=== PATIENT | female | born 1930 | race African-American/Black ===

== ENCOUNTER 2018-10-16 06:38 | Inpatient (IN) | payer MEDICARE, OTHER ==
[~2018-10-16] VITALS: Ht 177.8 cm; Wt 98.0 kg
[2018-10-16] MEDS ORDERED: SODIUM CHLORIDE 0.9% 250 ML IV ONE (06:53)
[2018-10-16] MEDS ORDERED: FENTANYL CITRATE/PF 50MCG/ML 2ML VIAL IV ONE ×2 (07:00→09:15)
[2018-10-16] MEDS ORDERED: ONDANSETRON HCL 4MG/2ML INJ IV ONE (07:00)
[2018-10-16 07:40] LABS: BASOPHILS % 0.6 % (0.0-2.0); EOSINOPHILS % 1.3 % (0.0-5.0); HEMATOCRIT. 29.2 % (36.0-48.0); HEMOGLOBIN. 9.5 g/dL (12.0-16.0); LYMPHOCYTES % 8.3 % (20.0-50.0); MEAN CORPUSCULAR HEMOGLOBIN 30.8 pg (28.0-32.0); MEAN CORPUSCULAR VOLUME 94.5 fL (81.0-99.0); MONOCYTES % 9.1 % (2.0-8.0); NEUTROPHILS % 80.7 % (40.0-76.0); PLATELET 166 x1000/uL (130-400); RED BLOOD CELL COUNT 3.09 mill/uL (4.2-5.4); RED CELL DISTRIBUTION WIDTH 17.1 % (11.6-14.6)
[2018-10-16 07:47] LABS: PARTIAL THROMBOPLASTIN TIME 25.3 sec (23.4-31.0); PROTHROMBIN TIME 9.9 sec (9.1-11.1)
[2018-10-16] MEDS ORDERED: ASPIRIN 81MG TABLET PO ONE (08:45)
[2018-10-16] MEDS ORDERED: DIPHENHYDRAMINE 50MG/ML VIAL IV PRN (09:00)
[2018-10-16] MEDS ORDERED: CLONIDINE 0.1MG TABLET PO PRN (09:00)
[2018-10-16] MEDS ORDERED: GUAIFENESIN 200MG/10ML SUGAR FREE UDC PO PRN (09:00)
[2018-10-16] MEDS ORDERED: LORAZEPAM 2MG/ML CPJ IV PRN (09:00)
[2018-10-16] MEDS ORDERED: IPRATROPIUM/ALBUTEROL 0.5-3(2.5)MG/3ML NEB INH PRN (09:00)
[2018-10-16] MEDS ORDERED: ACETAMINOPHEN 325MG TABLET PO PRN (09:00)
[2018-10-16] MEDS ORDERED: MAGNESIUM/ALUMINUM HYDROXIDE/SIMETHICONE 30ML UDC PO PRN (09:00)
[2018-10-16] MEDS ORDERED: ONDANSETRON HCL 4MG/2ML INJ IV PRN (09:00)
[2018-10-16] MEDS ORDERED: MORPHINE SULFATE 4 MG/ML CPJ (NOT FOR IM USE) IV PRN (09:00)
[2018-10-16] MEDS ORDERED: NA PHOS,M-B/NA PHOS,DI-BA ENEMA 118ML PR PRN (09:00)
[2018-10-16 10:50] VITALS: BP 147/66
[2018-10-16 10:59] LABS: CREATINE KINASE 131 IU/L (26-192)
[2018-10-16] MEDS: ASPIRIN 81MG EC TABLET PO SCH (11:45)
[2018-10-16 12:00] VITALS: BP 147/66
[2018-10-16] MEDS ORDERED: ENOXAPARIN 40MG/0.4ML SYR SUBCUT SCH (12:00)
[2018-10-16] MEDS ORDERED: LORA10TA7 PO (12:43)
[2018-10-16] MEDS ORDERED: LEVO112T7 PO (12:43)
[2018-10-16] MEDS ORDERED: METO25TA6 PO (12:43)
[2018-10-16] MEDS ORDERED: GABA-531 PO (12:43)
[2018-10-16] MEDS ORDERED: CHOL400C8 PO (12:43)
[2018-10-16] MEDS ORDERED: ATOR40TA70 PO (12:43)
[2018-10-16] MEDS ORDERED: LISI-604 PO (12:43)
[2018-10-16] MEDS ORDERED: FURO20TA4 PO (12:43)
[2018-10-16] MEDS ORDERED: BRIM5DRO6 RIGHTEYE (12:43)
[2018-10-16] MEDS ORDERED: DAPS25TA MT (12:43)
[2018-10-16] MEDS ORDERED: ASPI-1159 PO (12:43)
[2018-10-16] MEDS ORDERED: MOXI3DRO12 EACHEYE (12:43)
[2018-10-16] MEDS ORDERED: TICA90TA PO (12:44)
[2018-10-16] MEDS: SODIUM CHLORIDE 0.45% 1,000 ML IV SCH (13:23)
[2018-10-16] MEDS: DILTIAZEM HCL 30MG TABLET PO SCH ×2 (13:23→22:00)
[2018-10-16 16:00] VITALS: BP 111/69
[2018-10-16] MEDS ORDERED: HYDROCODONE/ACETAMINOPHEN 5/325MG TABLET PO PRN (16:15)
[2018-10-16] MEDS ORDERED: LORATADINE 10MG TABLET PO PRN (16:15)
[2018-10-16] MEDS: HYDROCODONE/ACETAMINOPHEN 5/325MG TABLET PO PRN ×2 (16:17→21:49)
[2018-10-16] MEDS: BRIMONIDINE 0.2% OPHTH DROPS 5ML RIGHTEYE SCH (18:41)
[2018-10-16] MEDS: CIPROFLOXACIN 0.3% OPHTH SOLN 2.5ML EACHEYE SCH (18:41)
[2018-10-16] MEDS: DAPSONE 100MG TABLET PO SCH (18:41)
[2018-10-16] MEDS: METOPROLOL TARTRATE 25MG TABLET PO SCH (21:00)
[2018-10-16] MEDS: GABAPENTIN 300MG CAPSULE PO SCH (21:47)
[2018-10-16] MEDS: ATORVASTATIN CALCIUM 40MG TABLET PO SCH (21:48)
[2018-10-17] VITALS: BP 103/43
[2018-10-17] MEDS: HYDROCODONE/ACETAMINOPHEN 5/325MG TABLET PO PRN (03:42)
[2018-10-17 04:00] VITALS: BP 114/50
[2018-10-17] MEDS: DILTIAZEM HCL 30MG TABLET PO SCH ×3 (05:51→21:13)
[2018-10-17] MEDS: LEVOTHYROXINE SODIUM 112MCG TABLET PO SCH (06:53)
[2018-10-17 07:02] LABS: BASOPHILS % 0.8 % (0.0-2.0); EOSINOPHILS % 2.2 % (0.0-5.0); HEMATOCRIT. 24.3 % (36.0-48.0); HEMOGLOBIN. 7.9 g/dL (12.0-16.0); LYMPHOCYTES % 9.4 % (20.0-50.0); MEAN CORPUSCULAR HEMOGLOBIN 31.1 pg (28.0-32.0); MEAN CORPUSCULAR VOLUME 95.7 fL (81.0-99.0); MEAN PLATELET VOLUME 10.2 fl (7.4-10.4); MONOCYTES % 10.9 % (2.0-8.0); NEUTROPHILS % 76.7 % (40.0-76.0); PLATELET 120 x1000/uL (130-400); RED BLOOD CELL COUNT 2.54 mill/uL (4.2-5.4); RED CELL DISTRIBUTION WIDTH 17.2 % (11.6-14.6)
[2018-10-17 07:03] LABS: CHLORIDE 109 mEq/L (98-107)
[2018-10-17 07:24] LABS: LDL CHOLESTEROL 58 mg/dL (5-100)
[2018-10-17 07:25] LABS: HDL CHOLESTEROL 41 mg/dL (40-59)
[2018-10-17 08:00] VITALS: BP 102/46
[2018-10-17] MEDS: CIPROFLOXACIN 0.3% OPHTH SOLN 2.5ML EACHEYE SCH ×3 (09:00→17:42)
[2018-10-17] MEDS: METOPROLOL TARTRATE 25MG TABLET PO SCH ×2 (09:00→21:00)
[2018-10-17] MEDS: BRIMONIDINE 0.2% OPHTH DROPS 5ML RIGHTEYE SCH ×2 (09:51→17:42)
[2018-10-17] MEDS: ASPIRIN 81MG EC TABLET PO SCH (09:51)
[2018-10-17] MEDS: CHOLECALCIFEROL (D3) 1000 UNIT TABLET PO SCH (09:52)
[2018-10-17] MEDS: FUROSEMIDE 20MG TABLET PO SCH (09:52)
[2018-10-17] MEDS: DAPSONE 100MG TABLET PO SCH ×2 (09:53→17:42)
[2018-10-17] MEDS: HYDROCODONE/ACETAMINOPHEN 10/325MG TABLET PO PRN ×2 (11:13→17:43)
[2018-10-17 11:35] VITALS: BP 103/52
[2018-10-17] MEDS: SODIUM CHLORIDE 0.45% 1,000 ML IV SCH ×2 (12:00→15:21)
[2018-10-17] MEDS ORDERED: ENOXAPARIN 100MG/ML SYR SUBCUT SCH (14:00)
[2018-10-17 15:32] VITALS: BP 90/51
[2018-10-17 20:00] VITALS: BP 90/35
[2018-10-17] MEDS: ATORVASTATIN CALCIUM 40MG TABLET PO SCH (21:12)
[2018-10-17] MEDS: GABAPENTIN 300MG CAPSULE PO SCH (21:12)
[2018-10-18 04:00] VITALS: BP 112/57
[2018-10-18] MEDS: LEVOTHYROXINE SODIUM 112MCG TABLET PO SCH (06:25)
[2018-10-18] MEDS: HYDROCODONE/ACETAMINOPHEN 10/325MG TABLET PO PRN ×2 (06:26→14:13)
[2018-10-18] MEDS: DILTIAZEM HCL 30MG TABLET PO SCH ×3 (06:27→22:00)
[2018-10-18] MEDS: ASPIRIN 81MG EC TABLET PO SCH (10:13)
[2018-10-18] MEDS: FUROSEMIDE 20MG TABLET PO SCH (10:13)
[2018-10-18] MEDS: DAPSONE 100MG TABLET PO SCH ×2 (10:13→18:24)
[2018-10-18] MEDS: METOPROLOL TARTRATE 25MG TABLET PO SCH (10:13)
[2018-10-18] MEDS: CHOLECALCIFEROL (D3) 1000 UNIT TABLET PO SCH (10:14)
[2018-10-18] MEDS: CIPROFLOXACIN 0.3% OPHTH SOLN 2.5ML EACHEYE SCH ×3 (10:14→18:24)
[2018-10-18] MEDS: BRIMONIDINE 0.2% OPHTH DROPS 5ML RIGHTEYE SCH ×2 (10:14→18:25)
[2018-10-18 12:13] VITALS: BP 88/42
[2018-10-18 16:15] VITALS: BP 80/40
[2018-10-18 17:00] VITALS: BP 88/46
[2018-10-18] MEDS: SODIUM CHLORIDE 0.45% 1,000 ML IV SCH (18:24)
[2018-10-18 20:00] VITALS: BP 98/25
[2018-10-18] MEDS: GABAPENTIN 300MG CAPSULE PO SCH (20:38)
[2018-10-18] MEDS: ATORVASTATIN CALCIUM 40MG TABLET PO SCH (20:38)
[2018-10-19] VITALS (7 sets, daily range): BP systolic 90–138; BP diastolic 38–66
[2018-10-19] MEDS: HYDROCODONE/ACETAMINOPHEN 10/325MG TABLET PO PRN ×4 (02:23→20:43)
[2018-10-19] MEDS: DILTIAZEM HCL 30MG TABLET PO SCH ×3 (06:00→22:00)
[2018-10-19] MEDS: LEVOTHYROXINE SODIUM 112MCG TABLET PO SCH (06:29)
[2018-10-19] MEDS: CHOLECALCIFEROL (D3) 1000 UNIT TABLET PO SCH (08:09)
[2018-10-19] MEDS: DAPSONE 100MG TABLET PO SCH ×2 (08:10→17:09)
[2018-10-19] MEDS: ASPIRIN 81MG EC TABLET PO SCH (08:13)
[2018-10-19] MEDS: FUROSEMIDE 20MG TABLET PO SCH (08:13)
[2018-10-19] MEDS: CIPROFLOXACIN 0.3% OPHTH SOLN 2.5ML EACHEYE SCH ×3 (08:16→17:03)
[2018-10-19] MEDS: BRIMONIDINE 0.2% OPHTH DROPS 5ML RIGHTEYE SCH ×2 (08:16→17:09)
[2018-10-19 09:59] LABS: HEMATOCRIT. 24.2 % (36.0-48.0); HEMOGLOBIN. 7.7 g/dL (12.0-16.0); MEAN CORPUSCULAR HEMOGLOBIN 30.6 pg (28.0-32.0); MEAN CORPUSCULAR VOLUME 95.9 fL (81.0-99.0); MEAN PLATELET VOLUME 10.2 fl (7.4-10.4); PLATELET 119 x1000/uL (130-400); RED BLOOD CELL COUNT 2.52 mill/uL (4.2-5.4); RED CELL DISTRIBUTION WIDTH 17.5 % (11.6-14.6)
[2018-10-19 15:35] LABS: PLATELET ESTIMATE DECREASED
[2018-10-19 16:04] LABS: CREATINE KINASE 974 IU/L (26-192)
[2018-10-19] MEDS: SODIUM CHLORIDE 0.45% 1,000 ML IV SCH (19:02)
[2018-10-19 19:32] LABS: CLARITY URINE TURBID (CLEAR); COLOR URINE DARK YELLOW (YELLOW); KETONES URINE NEGATIVE (NEGATIVE); LEUKOCYTE ESTERASE URINE 3+ (NEGATIVE); NITRITE URINE POSITIVE (NEGATIVE); OCCULT BLOOD URINE 3+ (NEGATIVE); PROTEIN URINE NEGATIVE (NEGATIVE)
[2018-10-19] MEDS: ATORVASTATIN CALCIUM 40MG TABLET PO SCH (20:43)
[2018-10-19] MEDS: GABAPENTIN 300MG CAPSULE PO SCH (20:44)
[2018-10-20] VITALS: BP 102/50
[2018-10-20 04:00] VITALS: BP 110/51
[2018-10-20] MEDS: HYDROCODONE/ACETAMINOPHEN 10/325MG TABLET PO PRN ×3 (05:10→17:56)
[2018-10-20] MEDS: DILTIAZEM HCL 30MG TABLET PO SCH ×3 (06:00→21:01)
[2018-10-20] MEDS: LEVOTHYROXINE SODIUM 112MCG TABLET PO SCH (06:18)
[2018-10-20] MEDS ORDERED: HYDROMORPHONE HCL/PF 2MG/ML CPJ IV SCH (06:45)
[2018-10-20 08:01] LABS: HEMATOCRIT. 22.6 % (36.0-48.0); HEMOGLOBIN. 7.4 g/dL (12.0-16.0); MEAN CORPUSCULAR HEMOGLOBIN 30.5 pg (28.0-32.0); MEAN CORPUSCULAR VOLUME 93.4 fL (81.0-99.0); MEAN PLATELET VOLUME 10.4 fl (7.4-10.4); PLATELET 137 x1000/uL (130-400); RED BLOOD CELL COUNT 2.42 mill/uL (4.2-5.4); RED CELL DISTRIBUTION WIDTH 17.2 % (11.6-14.6)
[2018-10-20] MEDS: DAPSONE 100MG TABLET PO SCH ×2 (08:51→17:55)
[2018-10-20] MEDS: CHOLECALCIFEROL (D3) 1000 UNIT TABLET PO SCH (08:51)
[2018-10-20] MEDS: CIPROFLOXACIN 0.3% OPHTH SOLN 2.5ML EACHEYE SCH ×3 (08:51→17:55)
[2018-10-20] MEDS: SODIUM CHLORIDE 0.45% 1,000 ML IV SCH ×2 (08:51→21:42)
[2018-10-20] MEDS: BRIMONIDINE 0.2% OPHTH DROPS 5ML RIGHTEYE SCH ×2 (08:52→17:55)
[2018-10-20 12:00] VITALS: BP 129/60
[2018-10-20 13:24] LABS: CREATINE KINASE 1296 IU/L (26-192)
[2018-10-20 15:50] LABS: PLATELET ESTIMATE NORMAL
[2018-10-20 16:00] VITALS: BP 131/50
[2018-10-20 20:00] VITALS: BP 135/47
[2018-10-20] MEDS: ATORVASTATIN CALCIUM 40MG TABLET PO SCH (20:56)
[2018-10-20] MEDS: GABAPENTIN 300MG CAPSULE PO SCH (20:57)
[2018-10-20] MEDS ORDERED: HYDROMORPHONE HCL/PF 2MG/ML CPJ IV PRN (22:00)
[2018-10-20] MEDS: HYDROMORPHONE HCL/PF 2MG/ML CPJ IV PRN (23:20)
[2018-10-21] VITALS: BP 133/48
[2018-10-21 04:00] VITALS: BP_SYST 135; BP_DIAS 48; BP_DIAS 51
[2018-10-21] MEDS: HYDROCODONE/ACETAMINOPHEN 10/325MG TABLET PO PRN (04:17)
[2018-10-21] MEDS: DILTIAZEM HCL 30MG TABLET PO SCH ×3 (06:28→21:00)
[2018-10-21] MEDS: LEVOTHYROXINE SODIUM 112MCG TABLET PO SCH (06:28)
[2018-10-21 07:02] LABS: HEMATOCRIT. 23.8 % (36.0-48.0); HEMOGLOBIN. 7.6 g/dL (12.0-16.0); MEAN CORPUSCULAR HEMOGLOBIN 29.9 pg (28.0-32.0); MEAN CORPUSCULAR VOLUME 93.2 fL (81.0-99.0); MEAN PLATELET VOLUME 9.6 fl (7.4-10.4); PLATELET 165 x1000/uL (130-400); RED BLOOD CELL COUNT 2.55 mill/uL (4.2-5.4); RED CELL DISTRIBUTION WIDTH 16.7 % (11.6-14.6)
[2018-10-21 08:00] VITALS: BP 113/44
[2018-10-21] MEDS: CIPROFLOXACIN 0.3% OPHTH SOLN 2.5ML EACHEYE SCH ×3 (08:17→17:39)
[2018-10-21] MEDS: BRIMONIDINE 0.2% OPHTH DROPS 5ML RIGHTEYE SCH ×2 (08:18→17:40)
[2018-10-21] MEDS: CHOLECALCIFEROL (D3) 1000 UNIT TABLET PO SCH (08:18)
[2018-10-21] MEDS: DAPSONE 100MG TABLET PO SCH ×2 (08:19→17:40)
[2018-10-21 09:27] LABS: PLATELET ESTIMATE NORMAL
[2018-10-21 12:00] VITALS: BP 118/45
[2018-10-21] MEDS: SODIUM CHLORIDE 0.45% 1,000 ML IV SCH (15:06)
[2018-10-21 16:00] VITALS: BP 115/44
[2018-10-21 20:00] VITALS: BP 129/84
[2018-10-21] MEDS: ATORVASTATIN CALCIUM 40MG TABLET PO SCH (21:00)
[2018-10-21] MEDS: GABAPENTIN 300MG CAPSULE PO SCH (21:00)
[2018-10-22] VITALS (52 sets, daily range): BP systolic 94–175; BP diastolic 33–87
[2018-10-22] MEDS ORDERED: DEXT 5%/0.45% NACL 1000ML 1,000 ML IV SCH
[2018-10-22] MEDS: DILTIAZEM HCL 30MG TABLET PO SCH ×3 (05:34→22:06)
[2018-10-22] MEDS: LEVOTHYROXINE SODIUM 112MCG TABLET PO SCH (06:02)
[2018-10-22 06:55] LABS: HEMATOCRIT. 22.9 % (36.0-48.0); HEMOGLOBIN. 7.4 g/dL (12.0-16.0); MEAN CORPUSCULAR HEMOGLOBIN 30.2 pg (28.0-32.0); MEAN CORPUSCULAR VOLUME 92.8 fL (81.0-99.0); MEAN PLATELET VOLUME 9.6 fl (7.4-10.4); PLATELET 179 x1000/uL (130-400); RED BLOOD CELL COUNT 2.47 mill/uL (4.2-5.4)
[2018-10-22] MEDS ORDERED: BACITRACIN 50,000 UNITS/VIAL ONE (07:18)
[2018-10-22] MEDS ORDERED: GENTAMICIN SULF 40MG/ML 2ML VIAL ONE (07:18)
[2018-10-22] MEDS ORDERED: VANCOMYCIN HCL 500 MG/VIAL ONE (07:18)
[2018-10-22] MEDS ORDERED: BACITRACIN 15GM TUBE TOP ONE (07:18)
[2018-10-22] MEDS ORDERED: NORMAL SALINE 0.9% 10 ML SYR ONE (07:18)
[2018-10-22] MEDS ORDERED: TRANEXAMIC ACID 1,000 MG/10 ML IV ONE (07:45)
[2018-10-22] MEDS: BRIMONIDINE 0.2% OPHTH DROPS 5ML RIGHTEYE SCH ×2 (07:53→17:56)
[2018-10-22] MEDS: CIPROFLOXACIN 0.3% OPHTH SOLN 2.5ML EACHEYE SCH ×3 (07:53→17:56)
[2018-10-22] MEDS ORDERED: TRANEXAMIC ACID 1,000 MG in SODIUM CHLORIDE 0.9% 100 ML IV NR (08:00)
[2018-10-22] MEDS: SODIUM CHLORIDE 0.45% 1,000 ML IV SCH ×2 (08:36→15:55)
[2018-10-22] MEDS: CHOLECALCIFEROL (D3) 1000 UNIT TABLET PO SCH (09:00)
[2018-10-22] MEDS: DAPSONE 100MG TABLET PO SCH (09:00)
[2018-10-22] MEDS ORDERED: ALBUMIN HUMAN 12.5G/250ML (5%) IV ONE (09:00)
[2018-10-22] MEDS ORDERED: CEFAZOLIN SODIUM 1000MG/VIAL ONE (09:09)
[2018-10-22] MEDS ORDERED: SUCCINYLCHOLINE CHLORIDE 200MG/10ML IV ONE (09:09)
[2018-10-22] MEDS ORDERED: MIDAZOLAM HCL 2 MG/2 ML VIAL ONE (09:09)
[2018-10-22] MEDS ORDERED: PROPOFOL 200MG/20ML VIAL IV ONE (09:09)
[2018-10-22] MEDS ORDERED: FENTANYL CITRATE/PF 50MCG/ML 2ML VIAL ONE ×2 (09:09→10:45)
[2018-10-22] MEDS ORDERED: PHENYLEPHRINE HCL 10 MG/ML 1ML (IV VIAL) IV ONE (09:10)
[2018-10-22] MEDS ORDERED: ONDANSETRON HCL 4MG/2ML INJ ONE (09:10)
[2018-10-22] MEDS ORDERED: EPHEDRINE SULFATE 50MG/ML VIAL ONE (09:10)
[2018-10-22] MEDS ORDERED: METOCLOPRAMIDE HCL 10MG/2ML VIAL ONE (09:10)
[2018-10-22] MEDS ORDERED: BUPIVACAINE HCL/DEXTROSE/PF 0.75% 2ML AMP INJ ONE (09:24)
[2018-10-22] MEDS ORDERED: ROCURONIUM BROMIDE 10MG/ML VIAL 5ML IV ONE ×2 (10:22→10:52)
[2018-10-22] MEDS ORDERED: ACETAMINOPHEN 325MG TABLET PO PRN (11:45)
[2018-10-22] MEDS ORDERED: ONDANSETRON HCL 4MG/2ML INJ IV PRN (11:45)
[2018-10-22] MEDS ORDERED: HYDROCODONE/ACETAMINOPHEN 5/325MG TABLET PO PRN (11:45)
[2018-10-22 11:51] LABS: HEMATOCRIT. 24.8 % (36.0-48.0); HEMOGLOBIN. 8.1 g/dL (12.0-16.0); MEAN CORPUSCULAR HEMOGLOBIN 29.9 pg (28.0-32.0); MEAN CORPUSCULAR VOLUME 91.5 fL (81.0-99.0); MEAN PLATELET VOLUME 9.6 fl (7.4-10.4); PLATELET 152 x1000/uL (130-400); RED BLOOD CELL COUNT 2.71 mill/uL (4.2-5.4); RED CELL DISTRIBUTION WIDTH 16.8 % (11.6-14.6)
[2018-10-22 11:55] LABS: BG BASE EXCESS -8.1 mmol/L (-2.0-2.0); BG CARBOXYHEMOGLOBIN 1.7 % (0.5-1.5); BG FRACTION INSPIRED OXYGEN 100; BG HCO3 ACT 15.8 mmol/L (22.0-26.0); BG METHEMOGLOBIN 19.6 % (0.0-1.5); BG OXYHEMOGLOBIN 78.7 % (94.0-97.0); BG PCO2 26.7 mmHg (35.0-45.0); BG PH 7.391 (7.350-7.450); BG PO2 388.8 mmHg (75.0-100.0); BG SAMPLE SITE A-LINE; BG TOTAL HEMOGLOBIN 7.9 g/dL (12.0-18.0); BG VENT MODE VENT - A/C
[2018-10-22] MEDS: PROPOFOL 10MG/ML 100ML 100 ML IV PRN ×2 (12:20→17:55)
[2018-10-22 12:32] LABS: BG BASE EXCESS -5.3 mmol/L (-2.0-2.0); BG CARBOXYHEMOGLOBIN 1.4 % (0.5-1.5); BG DEOXYHEMOGLOBIN 0.3 % (0.0-5.0); BG FRACTION INSPIRED OXYGEN 100; BG HCO3 ACT 19.4 mmol/L (22.0-26.0); BG METHEMOGLOBIN 19.3 % (0.0-1.5); BG OXYGEN SATURATION 99.6 % (92.0-98.5); BG PCO2 34.7 mmHg (35.0-45.0); BG PH 7.366 (7.350-7.450); BG PO2 465.6 mmHg (75.0-100.0); BG SAMPLE SITE A-LINE; BG TIDAL VOLUME(mL) 550 mL; BG VENT MODE VENT - A/C; BG VENT RATE 14 set
[2018-10-22] MEDS ORDERED: LEVOFLOXACIN 750MG PREMIX 150 ML IV NR (14:00)
[2018-10-22] MEDS: CLINDAMYCIN 600 MG in DEXTROSE 5% WATER 50 ML IV SCH ×2 (15:38→22:05)
[2018-10-22 16:37] LABS: PLATELET ESTIMATE NORMAL
[2018-10-22] MEDS: DAPSONE 25 MG PO SCH (17:54)
[2018-10-22 18:27] LABS: HEMATOCRIT 30.8 % (36.0-48.0); MEAN CORPUSCULAR HEMOGLOBIN 29.6 pg (28.0-32.0); MEAN CORPUSCULAR VOLUME 91.5 fL (81.0-99.0); PLATELET 159 x1000/uL (130-400); RED BLOOD CELL COUNT 3.37 mill/uL (4.2-5.4); RED CELL DISTRIBUTION WIDTH 16.6 % (11.6-14.6)
[2018-10-22 20:00] LABS: PLATELET ESTIMATE NORMAL
[2018-10-22] MEDS: ATORVASTATIN CALCIUM 40MG TABLET PO SCH (21:00)
[2018-10-22] MEDS: IPRATROPIUM/ALBUTEROL 0.5-3(2.5)MG/3ML NEB HHN SCH (21:11)
[2018-10-22] MEDS: GABAPENTIN 300MG CAPSULE PO SCH (22:05)
[2018-10-23] VITALS (49 sets, daily range): BP systolic 65–130; BP diastolic 28–76
[2018-10-23] MEDS: PROPOFOL 10MG/ML 100ML 100 ML IV PRN ×2 (00:31→05:18)
[2018-10-23] MEDS: SODIUM CHLORIDE 0.45% 1,000 ML IV SCH ×2 (00:32→05:19)
[2018-10-23] MEDS: IPRATROPIUM/ALBUTEROL 0.5-3(2.5)MG/3ML NEB HHN SCH ×4 (02:30→21:00)
[2018-10-23] MEDS: CLINDAMYCIN 600 MG in DEXTROSE 5% WATER 50 ML IV SCH ×2 (05:20→16:46)
[2018-10-23] MEDS: DILTIAZEM HCL 30MG TABLET PO SCH ×3 (05:22→22:00)
[2018-10-23 05:42] LABS: HEMOGLOBIN. 9.4 g/dL (12.0-16.0); MEAN CORPUSCULAR HEMOGLOBIN 29.6 pg (28.0-32.0); MEAN CORPUSCULAR VOLUME 90.7 fL (81.0-99.0); MEAN PLATELET VOLUME 9.8 fl (7.4-10.4); PLATELET 171 x1000/uL (130-400); RED BLOOD CELL COUNT 3.19 mill/uL (4.2-5.4); RED CELL DISTRIBUTION WIDTH 16.8 % (11.6-14.6)
[2018-10-23] MEDS: LEVOTHYROXINE SODIUM 112MCG TABLET PO SCH (08:33)
[2018-10-23 08:38] LABS: PLATELET ESTIMATE NORMAL
[2018-10-23] MEDS: BRIMONIDINE 0.2% OPHTH DROPS 5ML RIGHTEYE SCH ×2 (09:18→17:26)
[2018-10-23] MEDS: DAPSONE 25 MG PO SCH ×2 (09:18→17:26)
[2018-10-23] MEDS: CIPROFLOXACIN 0.3% OPHTH SOLN 2.5ML EACHEYE SCH ×3 (09:18→17:25)
[2018-10-23] MEDS: CHOLECALCIFEROL (D3) 1000 UNIT TABLET PO SCH (09:19)
[2018-10-23 09:42] LABS: CREATINE KINASE 319 IU/L (26-192)
[2018-10-23 11:53] LABS: BG BASE EXCESS -4.9 mmol/L (-2.0-2.0); BG CARBOXYHEMOGLOBIN 1.6 % (0.5-1.5); BG DEOXYHEMOGLOBIN 0.5 % (0.0-5.0); BG FRACTION INSPIRED OXYGEN 40; BG METHEMOGLOBIN 22.7 % (0.0-1.5); BG OXYGEN SATURATION 99.3 % (92.0-98.5); BG OXYHEMOGLOBIN 75.2 % (94.0-97.0); BG PCO2 26.1 mmHg (35.0-45.0); BG PH 7.456 (7.350-7.450); BG PO2 151.5 mmHg (75.0-100.0); BG SAMPLE SITE LEFT BRACHIAL; BG TOTAL HEMOGLOBIN 9.5 g/dL (12.0-18.0); BG VENT MODE VENT - CPAP
[2018-10-23] MEDS: ATORVASTATIN CALCIUM 40MG TABLET PO SCH (21:59)
[2018-10-23] MEDS: GABAPENTIN 300MG CAPSULE PO SCH (21:59)
[2018-10-24] VITALS (28 sets, daily range): BP systolic 73–131; BP diastolic 24–57
[2018-10-24] MEDS: IPRATROPIUM/ALBUTEROL 0.5-3(2.5)MG/3ML NEB HHN SCH ×5 (01:33→21:35)
[2018-10-24] MEDS: HYDROCODONE/ACETAMINOPHEN 10/325MG TABLET PO PRN ×3 (04:04→19:36)
[2018-10-24 05:44] LABS: HEMATOCRIT. 38.4 % (36.0-48.0); HEMOGLOBIN. 12.3 g/dL (12.0-16.0); MEAN CORPUSCULAR HEMOGLOBIN 29.3 pg (28.0-32.0); MEAN CORPUSCULAR VOLUME 91.1 fL (81.0-99.0); MEAN PLATELET VOLUME 9.7 fl (7.4-10.4); PLATELET 138 x1000/uL (130-400); RED BLOOD CELL COUNT 4.21 mill/uL (4.2-5.4); RED CELL DISTRIBUTION WIDTH 16.8 % (11.6-14.6)
[2018-10-24] MEDS: DILTIAZEM HCL 30MG TABLET PO SCH ×3 (06:00→22:13)
[2018-10-24 07:54] LABS: NUCLEATED RED BLOOD CELLS 1 /100 WBC; PLATELET ESTIMATE NORMAL
[2018-10-24] MEDS: BRIMONIDINE 0.2% OPHTH DROPS 5ML RIGHTEYE SCH ×2 (09:20→18:16)
[2018-10-24] MEDS: CHOLECALCIFEROL (D3) 1000 UNIT TABLET PO SCH (09:20)
[2018-10-24] MEDS: DOCUSATE SODIUM 100MG CAPSULE PO PRN (09:20)
[2018-10-24] MEDS: DAPSONE 25 MG PO SCH ×2 (09:21→18:16)
[2018-10-24] MEDS: LEVOTHYROXINE SODIUM 112MCG TABLET PO SCH (09:21)
[2018-10-24] MEDS: LEVOFLOXACIN 500MG PREMIX 100 ML IV SCH (12:00)
[2018-10-24] MEDS: ATORVASTATIN CALCIUM 40MG TABLET PO SCH (21:26)
[2018-10-24] MEDS: GABAPENTIN 300MG CAPSULE PO SCH (21:27)
[2018-10-24] MEDS: HYDROMORPHONE HCL/PF 2MG/ML CPJ IV PRN (23:05)
[2018-10-25] VITALS (38 sets, daily range): BP systolic 86–115; BP diastolic 35–76
[2018-10-25] MEDS: IPRATROPIUM/ALBUTEROL 0.5-3(2.5)MG/3ML NEB HHN SCH ×4 (01:28→21:04)
[2018-10-25] MEDS: HYDROMORPHONE HCL/PF 2MG/ML CPJ IV PRN (05:16)
[2018-10-25] MEDS: DILTIAZEM HCL 30MG TABLET PO SCH ×3 (06:00→21:46)
[2018-10-25 06:41] LABS: HEMATOCRIT. 26.4 % (36.0-48.0); HEMOGLOBIN. 8.4 g/dL (12.0-16.0); MEAN CORPUSCULAR HEMOGLOBIN 29.3 pg (28.0-32.0); MEAN CORPUSCULAR VOLUME 91.5 fL (81.0-99.0); MEAN PLATELET VOLUME 9.4 fl (7.4-10.4); PLATELET 216 x1000/uL (130-400); RED BLOOD CELL COUNT 2.88 mill/uL (4.2-5.4); RED CELL DISTRIBUTION WIDTH 17.2 % (11.6-14.6)
[2018-10-25] MEDS: DAPSONE 25 MG PO SCH ×2 (09:17→17:14)
[2018-10-25] MEDS: CHOLECALCIFEROL (D3) 1000 UNIT TABLET PO SCH (09:17)
[2018-10-25] MEDS: DOCUSATE SODIUM 100MG CAPSULE PO PRN ×2 (09:17→17:13)
[2018-10-25] MEDS: LEVOTHYROXINE SODIUM 112MCG TABLET PO SCH (09:17)
[2018-10-25] MEDS: HYDROCODONE/ACETAMINOPHEN 10/325MG TABLET PO PRN ×2 (09:19→15:07)
[2018-10-25] MEDS: BRIMONIDINE 0.2% OPHTH DROPS 5ML RIGHTEYE SCH ×2 (10:12→17:13)
[2018-10-25 10:48] LABS: PLATELET ESTIMATE NORMAL
[2018-10-25] MEDS: LEVOFLOXACIN 500MG PREMIX 100 ML IV SCH (13:05)
[2018-10-25] MEDS: SODIUM CHLORIDE 0.45% 1,000 ML IV SCH (13:06)
[2018-10-25] MEDS: GABAPENTIN 300MG CAPSULE PO SCH (21:45)
[2018-10-25] MEDS: ATORVASTATIN CALCIUM 40MG TABLET PO SCH (21:45)
[2018-10-26] VITALS (12 sets, daily range): BP systolic 89–114; BP diastolic 44–74
[2018-10-26] MEDS: IPRATROPIUM/ALBUTEROL 0.5-3(2.5)MG/3ML NEB HHN SCH ×4 (00:28→20:44)
[2018-10-26] MEDS: HYDROCODONE/ACETAMINOPHEN 10/325MG TABLET PO PRN ×3 (03:50→22:09)
[2018-10-26 06:11] LABS: HEMATOCRIT. 24.8 % (36.0-48.0); MEAN CORPUSCULAR HEMOGLOBIN 29.7 pg (28.0-32.0); MEAN CORPUSCULAR VOLUME 91.8 fL (81.0-99.0); MEAN PLATELET VOLUME 9.1 fl (7.4-10.4); PLATELET 230 x1000/uL (130-400); RED BLOOD CELL COUNT 2.71 mill/uL (4.2-5.4); RED CELL DISTRIBUTION WIDTH 17.3 % (11.6-14.6)
[2018-10-26] MEDS: LEVOTHYROXINE SODIUM 112MCG TABLET PO SCH (07:10)
[2018-10-26] MEDS: DILTIAZEM HCL 30MG TABLET PO SCH ×3 (07:11→22:00)
[2018-10-26] MEDS: SODIUM CHLORIDE 0.45% 1,000 ML IV SCH (07:11)
[2018-10-26] MEDS: CHOLECALCIFEROL (D3) 1000 UNIT TABLET PO SCH (09:24)
[2018-10-26] MEDS: BRIMONIDINE 0.2% OPHTH DROPS 5ML RIGHTEYE SCH ×2 (09:24→17:24)
[2018-10-26] MEDS ORDERED: LEVOFLOXACIN 250MG PREMIX 50 ML IV SCH (12:00)
[2018-10-26] MEDS: DAPSONE 25 MG PO SCH ×2 (13:19→17:24)
[2018-10-26] MEDS: LEVOFLOXACIN 250MG PREMIX 50 ML IV SCH (15:11)
[2018-10-26 15:25] LABS: PLATELET ESTIMATE NORMAL
[2018-10-26] MEDS: ASPIRIN 81MG EC TABLET PO SCH (22:08)
[2018-10-26] MEDS: TICAGRELOR 90 MG TABLET PO SCH (22:08)
[2018-10-26] MEDS: GABAPENTIN 300MG CAPSULE PO SCH (22:08)
[2018-10-26] MEDS: ATORVASTATIN CALCIUM 40MG TABLET PO SCH (22:08)
[2018-10-27] VITALS (13 sets, daily range): BP systolic 85–131; BP diastolic 39–73
[2018-10-27] MEDS: IPRATROPIUM/ALBUTEROL 0.5-3(2.5)MG/3ML NEB HHN SCH ×4 (01:07→21:30)
[2018-10-27] MEDS: SODIUM CHLORIDE 0.45% 1,000 ML IV SCH ×2 (04:30→21:22)
[2018-10-27] MEDS: DILTIAZEM HCL 30MG TABLET PO SCH ×3 (06:00→21:22)
[2018-10-27] MEDS: HYDROCODONE/ACETAMINOPHEN 10/325MG TABLET PO PRN ×4 (06:45→21:22)
[2018-10-27] MEDS: LEVOTHYROXINE SODIUM 112MCG TABLET PO SCH (06:46)
[2018-10-27 08:17] LABS: HEMATOCRIT. 25.5 % (36.0-48.0); MEAN CORPUSCULAR HEMOGLOBIN 29.5 pg (28.0-32.0); MEAN CORPUSCULAR VOLUME 94.1 fL (81.0-99.0); MEAN PLATELET VOLUME 9.1 fl (7.4-10.4); PLATELET 271 x1000/uL (130-400); RED BLOOD CELL COUNT 2.71 mill/uL (4.2-5.4); RED CELL DISTRIBUTION WIDTH 17.1 % (11.6-14.6)
[2018-10-27] MEDS: BRIMONIDINE 0.2% OPHTH DROPS 5ML RIGHTEYE SCH ×2 (09:42→18:39)
[2018-10-27] MEDS: ASPIRIN 81MG EC TABLET PO SCH (09:42)
[2018-10-27] MEDS: TICAGRELOR 90 MG TABLET PO SCH ×2 (09:42→18:39)
[2018-10-27] MEDS: DAPSONE 25 MG PO SCH ×2 (09:42→18:39)
[2018-10-27] MEDS: CHOLECALCIFEROL (D3) 1000 UNIT TABLET PO SCH (09:42)
[2018-10-27 12:15] LABS: PLATELET ESTIMATE NORMAL
[2018-10-27] MEDS: LEVOFLOXACIN 250MG PREMIX 50 ML IV SCH (17:05)
[2018-10-27 17:15] LABS: BG BASE EXCESS -3.9 mmol/L (-2.0-2.0); BG CARBOXYHEMOGLOBIN 2.1 % (0.5-1.5); BG DEOXYHEMOGLOBIN 4.2 % (0.0-5.0); BG FRACTION INSPIRED OXYGEN 21; BG HCO3 ACT 20.4 mmol/L (22.0-26.0); BG METHEMOGLOBIN 25.5 % (0.0-1.5); BG OXYGEN SATURATION 94.2 % (92.0-98.5); BG OXYHEMOGLOBIN 68.2 % (94.0-97.0); BG PCO2 33.9 mmHg (35.0-45.0); BG PH 7.398 (7.350-7.450); BG PO2 72.4 mmHg (75.0-100.0); BG SAMPLE SITE RIGHT BRACHIAL; BG VENT MODE ROOM AIR
[2018-10-27] MEDS ORDERED: HYDROCODONE/ACETAMINOPHEN 5/325MG TABLET PO PRN (18:00)
[2018-10-27] MEDS: ATORVASTATIN CALCIUM 40MG TABLET PO SCH (21:21)
[2018-10-27] MEDS: GABAPENTIN 300MG CAPSULE PO SCH (21:21)
[2018-10-28] VITALS (12 sets, daily range): BP systolic 84–117; BP diastolic 37–75
[2018-10-28] MEDS: IPRATROPIUM/ALBUTEROL 0.5-3(2.5)MG/3ML NEB HHN SCH ×2 (02:30→20:54)
[2018-10-28] MEDS: DILTIAZEM HCL 30MG TABLET PO SCH ×3 (06:00→22:00)
[2018-10-28] MEDS: LEVOTHYROXINE SODIUM 112MCG TABLET PO SCH (07:19)
[2018-10-28 10:44] LABS: HEMATOCRIT. 24.2 % (36.0-48.0); HEMOGLOBIN. 7.6 g/dL (12.0-16.0); MEAN CORPUSCULAR HEMOGLOBIN 29.4 pg (28.0-32.0); MEAN CORPUSCULAR VOLUME 93.2 fL (81.0-99.0); PLATELET 277 x1000/uL (130-400)
[2018-10-28] MEDS: MIDODRINE HCL 5MG TABLET PO SCH ×3 (11:05→17:27)
[2018-10-28] MEDS: BRIMONIDINE 0.2% OPHTH DROPS 5ML RIGHTEYE SCH ×2 (11:05→17:27)
[2018-10-28] MEDS: ASPIRIN 81MG EC TABLET PO SCH (11:06)
[2018-10-28] MEDS: TICAGRELOR 90 MG TABLET PO SCH (11:06)
[2018-10-28] MEDS: CHOLECALCIFEROL (D3) 1000 UNIT TABLET PO SCH (11:06)
[2018-10-28] MEDS: DAPSONE 25 MG PO SCH ×2 (11:06→17:27)
[2018-10-28 11:53] LABS: PLATELET ESTIMATE NORMAL
[2018-10-28] MEDS: HYDROCODONE/ACETAMINOPHEN 10/325MG TABLET PO PRN (11:56)
[2018-10-28] MEDS: LEVOFLOXACIN 250MG PREMIX 50 ML IV SCH (14:03)
[2018-10-28] MEDS: SODIUM CHLORIDE 0.45% 1,000 ML IV SCH (18:47)
[2018-10-28] MEDS: GABAPENTIN 300MG CAPSULE PO SCH (22:02)
[2018-10-28] MEDS: ATORVASTATIN CALCIUM 40MG TABLET PO SCH (22:02)
[2018-10-29] VITALS (16 sets, daily range): BP systolic 96–136; BP diastolic 43–70
[2018-10-29] MEDS: IPRATROPIUM/ALBUTEROL 0.5-3(2.5)MG/3ML NEB HHN SCH ×4 (01:57→20:31)
[2018-10-29 05:43] LABS: HEMATOCRIT. 22.5 % (36.0-48.0); HEMOGLOBIN. 7.1 g/dL (12.0-16.0); MEAN CORPUSCULAR HEMOGLOBIN 29.5 pg (28.0-32.0); MEAN CORPUSCULAR VOLUME 93.8 fL (81.0-99.0); MEAN PLATELET VOLUME 8.9 fl (7.4-10.4); PLATELET 282 x1000/uL (130-400); RED BLOOD CELL COUNT 2.39 mill/uL (4.2-5.4)
[2018-10-29] MEDS: DILTIAZEM HCL 30MG TABLET PO SCH ×3 (06:00→21:06)
[2018-10-29] MEDS: LEVOTHYROXINE SODIUM 112MCG TABLET PO SCH (06:16)
[2018-10-29] MEDS: HYDROCODONE/ACETAMINOPHEN 10/325MG TABLET PO PRN (06:16)
[2018-10-29] MEDS: MIDODRINE HCL 5MG TABLET PO SCH ×3 (09:25→16:33)
[2018-10-29] MEDS: CHOLECALCIFEROL (D3) 1000 UNIT TABLET PO SCH (09:25)
[2018-10-29] MEDS: BRIMONIDINE 0.2% OPHTH DROPS 5ML RIGHTEYE SCH ×2 (09:26→16:33)
[2018-10-29] MEDS: DAPSONE 25 MG PO SCH ×2 (09:26→16:33)
[2018-10-29] MEDS: DOCUSATE SODIUM 100MG CAPSULE PO PRN ×2 (09:31→16:34)
[2018-10-29 12:27] LABS: PLATELET ESTIMATE NORMAL
[2018-10-29] MEDS: LEVOFLOXACIN 250MG PREMIX 50 ML IV SCH (16:27)
[2018-10-29 17:15] LABS: BG BASE EXCESS -3.8 mmol/L (-2.0-2.0); BG CARBOXYHEMOGLOBIN 2.1 % (0.5-1.5); BG DEOXYHEMOGLOBIN 5.6 % (0.0-5.0); BG FRACTION INSPIRED OXYGEN 21; BG HCO3 ACT 20.4 mmol/L (22.0-26.0); BG METHEMOGLOBIN 20.3 % (0.0-1.5); BG OXYGEN SATURATION 92.8 % (92.0-98.5); BG PCO2 33.2 mmHg (35.0-45.0); BG PH 7.406 (7.350-7.450); BG PO2 67.5 mmHg (75.0-100.0); BG SAMPLE SITE RIGHT BRACHIAL; BG TOTAL HEMOGLOBIN 8.8 g/dL (12.0-18.0); BG VENT MODE ROOM AIR
[2018-10-29 17:26] LABS: HEMATOCRIT 27.7 % (36.0-48.0); HEMOGLOBIN 8.8 g/dL (12.0-16.0)
[2018-10-29] MEDS: ATORVASTATIN CALCIUM 40MG TABLET PO SCH (21:05)
[2018-10-29] MEDS: GABAPENTIN 300MG CAPSULE PO SCH (21:06)
== END 2018-10-29 23:30 | DRG 853 ==
LOC: ER 06:38 → 6WST 08:41 → EDBEDREQ 08:45 → ENRESERV 09:47 → CVICU 10-22 11:59 → 5EST 10-25 19:51
PROVIDERS: ADMIT Internal Medicine; ATTEND Internal Medicine
PROC: 0SRS0J9 Replacement of Left Hip Joint, Femoral Surface with Synthetic Substitute, Cemented, Open Approach (ICD-10-PCS; principal; 2018-10-22)
PROC: 30233N1 Transfusion of Nonautologous Red Blood Cells into Peripheral Vein, Percutaneous Approach (ICD-10-PCS; 2018-10-22)
DX: A41.51 Sepsis due to Escherichia coli [E. coli] (principal); S72.012A Unspecified intracapsular fracture of left femur, initial encounter for closed fracture; G93.41 Metabolic encephalopathy; J96.01 Acute respiratory failure with hypoxia; M62.82 Rhabdomyolysis; I13.0 Hypertensive heart and chronic kidney disease with heart failure and stage 1 through stage 4 chronic kidney disease, or unspecified chronic kidney disease; N39.0 Urinary tract infection, site not specified; N17.9 Acute kidney failure, unspecified; W01.0XXA Fall on same level from slipping, tripping and stumbling without subsequent striking against object, initial encounter; D64.9 Anemia, unspecified; D69.6 Thrombocytopenia, unspecified; E78.5 Hyperlipidemia, unspecified; I48.91 Unspecified atrial fibrillation; I27.21 Secondary pulmonary arterial hypertension; H54.8 Legal blindness, as defined in USA; I27.20 Pulmonary hypertension, unspecified; I25.5 Ischemic cardiomyopathy; N18.9 Chronic kidney disease, unspecified; S80.829A Blister (nonthermal), unspecified lower leg, initial encounter; I25.10 Atherosclerotic heart disease of native coronary artery without angina pectoris; I25.2 Old myocardial infarction; Z95.5 Presence of coronary angioplasty implant and graft; Z95.0 Presence of cardiac pacemaker; Z79.82 Long term (current) use of aspirin; Z91.81 History of falling; Q65.89 Other specified congenital deformities of hip; Y93.89 Activity, other specified; Y92.89 Other specified places as the place of occurrence of the external cause; Y99.8 Other external cause status; Z88.0 Allergy status to penicillin
CPT/HCPCS: 36415; 36600; 71045; 72170; 73130; 73502; 73560; 76770; 78582; 80048; 80061; 82375; 82550; 82805; 83735; 83880; 84100; 84484; 85014; 85018; 85027; 85379; 86850; 86900; 86920; 87070; 87077; 87186; 88305; 88311; 92610; 93005; 93306; 93971; 94002; 94640; 96361; 96374; 96375; 97110; 97163; 97167; 97530; 97535; 99291; A9558; C1713; C1776; J0330; J0690; J1170; J1200; J1580; J1650; J1956; J2060; J2250; J2370; J2405; J2704; J2765; J3010; J3370; J3490; J7050; J7060; J7620; L1830; P9016; P9041; A4315; J8499

== ENCOUNTER 2018-10-29 23:35 | Inpatient (IN) | payer MEDICARE, OTHER ==
[~2018-10-29] VITALS: Ht 177.8 cm; Wt 81.2 kg
[~2018-10-29 23:35] MED LIST: ASPI-1159 PO; ATOR40TA70 PO; BRIM5DRO6 RIGHTEYE; CHOL400C8 PO; DAPS25TA MT; FURO20TA4 PO; GABA-531 PO; LEVO112T7 PO; LISI-604 PO; LORA10TA7 PO; METO25TA6 PO; MOXI3DRO12 EACHEYE; TICA90TA PO
[2018-10-29 23:45] VITALS: BP 114/52
[2018-10-30] VITALS: BP 114/52
[2018-10-30] MEDS ORDERED: LORATADINE 10MG TABLET PO PRN (00:30)
[2018-10-30] MEDS ORDERED: ACETAMINOPHEN 325MG TABLET PO PRN (00:30)
[2018-10-30] MEDS ORDERED: DIPHENHYDRAMINE 50MG/ML VIAL IV PRN (00:30)
[2018-10-30] MEDS ORDERED: CLONIDINE 0.1MG TABLET PO PRN (00:30)
[2018-10-30] MEDS ORDERED: ONDANSETRON HCL 4MG/2ML INJ IV PRN (00:30)
[2018-10-30] MEDS ORDERED: IPRATROPIUM/ALBUTEROL 0.5-3(2.5)MG/3ML NEB HHN PRN (00:30)
[2018-10-30] MEDS ORDERED: MAGNESIUM/ALUMINUM HYDROXIDE/SIMETHICONE 30ML UDC PO PRN (00:30)
[2018-10-30] MEDS ORDERED: HYDROCODONE/ACETAMINOPHEN 10/325MG TABLET PO PRN (00:30)
[2018-10-30] MEDS ORDERED: GUAIFENESIN 200MG/10ML SUGAR FREE UDC PO PRN (00:30)
[2018-10-30] MEDS: HYDROCODONE/ACETAMINOPHEN 5/325MG TABLET PO PRN ×2 (01:21→09:21)
[2018-10-30 01:42] LABS: BG BASE EXCESS -3.4 mmol/L (-2.0-2.0); BG CARBOXYHEMOGLOBIN 1.5 % (0.5-1.5); BG DEOXYHEMOGLOBIN 0.5 % (0.0-5.0); BG FRACTION INSPIRED OXYGEN 32; BG HCO3 ACT 21.1 mmol/L (22.0-26.0); BG METHEMOGLOBIN 25.6 % (0.0-1.5); BG OXYGEN SATURATION 99.3 % (92.0-98.5); BG OXYHEMOGLOBIN 72.4 % (94.0-97.0); BG PCO2 35.6 mmHg (35.0-45.0); BG PH 7.391 (7.350-7.450); BG PO2 159.6 mmHg (75.0-100.0); BG SAMPLE SITE RIGHT BRACHIAL; BG TOTAL HEMOGLOBIN 8.4 g/dL (12.0-18.0); BG VENT MODE NASAL CANNULA
[2018-10-30] MEDS: IPRATROPIUM/ALBUTEROL 0.5-3(2.5)MG/3ML NEB HHN SCH ×4 (01:45→19:50)
[2018-10-30] MEDS ORDERED: NON FORMULARY PATIENT HOME MED XX SCH (03:30)
[2018-10-30] MEDS: NA PHOS,M-B/NA PHOS,DI-BA ENEMA 118ML PR PRN (06:03)
[2018-10-30] MEDS: LEVOTHYROXINE SODIUM 112MCG TABLET PO SCH (06:03)
[2018-10-30] MEDS: DILTIAZEM HCL 30MG TABLET PO SCH ×2 (06:03→13:13)
[2018-10-30 08:00] VITALS: BP 106/53
[2018-10-30 08:34] LABS: HEMATOCRIT. 26.8 % (36.0-48.0); HEMOGLOBIN. 8.5 g/dL (12.0-16.0); MEAN CORPUSCULAR HEMOGLOBIN 29.8 pg (28.0-32.0); MEAN CORPUSCULAR VOLUME 94.2 fL (81.0-99.0); MEAN PLATELET VOLUME 8.6 fl (7.4-10.4); PLATELET 315 x1000/uL (130-400); RED BLOOD CELL COUNT 2.84 mill/uL (4.2-5.4); RED CELL DISTRIBUTION WIDTH 16.7 % (11.6-14.6)
[2018-10-30] MEDS: DAPSONE 25 MG PO SCH ×2 (09:15→17:17)
[2018-10-30] MEDS: BRIMONIDINE 0.2% OPHTH DROPS 5ML RIGHTEYE SCH ×2 (09:15→17:23)
[2018-10-30] MEDS: CHOLECALCIFEROL (D3) 1000 UNIT TABLET PO SCH (09:15)
[2018-10-30] MEDS: MIDODRINE HCL 5MG TABLET PO SCH ×3 (09:16→17:26)
[2018-10-30] MEDS: METOPROLOL TARTRATE 25MG TABLET PO SCH ×2 (09:16→21:00)
[2018-10-30 10:32] LABS: PLATELET ESTIMATE NORMAL
[2018-10-30 11:50] LABS: CHLORIDE 109 mEq/L (98-107)
[2018-10-30] MEDS: GABAPENTIN 300MG CAPSULE PO SCH ×2 (14:03→21:39)
[2018-10-30] MEDS: LEVOFLOXACIN 250MG PREMIX 50 ML IV SCH (15:26)
[2018-10-30] MEDS: DOCUSATE SODIUM 100MG CAPSULE PO PRN (17:18)
[2018-10-30 20:00] VITALS: BP 104/42
[2018-10-30] MEDS ORDERED: GABAPENTIN 300MG CAPSULE PO SCH (21:00)
[2018-10-30] MEDS: ATORVASTATIN CALCIUM 40MG TABLET PO SCH (21:39)
[2018-10-31] MEDS: IPRATROPIUM/ALBUTEROL 0.5-3(2.5)MG/3ML NEB HHN SCH ×3 (01:56→20:45)
[2018-10-31] MEDS: GABAPENTIN 300MG CAPSULE PO SCH ×3 (06:42→21:35)
[2018-10-31] MEDS: LEVOTHYROXINE SODIUM 112MCG TABLET PO SCH (06:42)
[2018-10-31 07:07] LABS: BG CARBOXYHEMOGLOBIN 2.1 % (0.5-1.5); BG DEOXYHEMOGLOBIN 4.7 % (0.0-5.0); BG HCO3 ACT 22.6 mmol/L (22.0-26.0); BG METHEMOGLOBIN 20.8 % (0.0-1.5); BG OXYGEN SATURATION 93.9 % (92.0-98.5); BG OXYHEMOGLOBIN 72.4 % (94.0-97.0); BG PCO2 37.7 mmHg (35.0-45.0); BG PH 7.396 (7.350-7.450); BG SAMPLE SITE RIGHT BRACHIAL; BG TOTAL HEMOGLOBIN 7.8 g/dL (12.0-18.0); BG VENT MODE ROOM AIR
[2018-10-31 07:42] LABS: HEMATOCRIT. 25.5 % (36.0-48.0); MEAN CORPUSCULAR HEMOGLOBIN 29.7 pg (28.0-32.0); MEAN CORPUSCULAR VOLUME 94.4 fL (81.0-99.0); MEAN PLATELET VOLUME 8.8 fl (7.4-10.4); PLATELET 320 x1000/uL (130-400); RED CELL DISTRIBUTION WIDTH 17.2 % (11.6-14.6)
[2018-10-31 08:00] VITALS: BP 149/51
[2018-10-31] MEDS: MIDODRINE HCL 5MG TABLET PO SCH ×3 (09:10→17:10)
[2018-10-31] MEDS: DAPSONE 25 MG PO SCH ×2 (09:10→17:10)
[2018-10-31] MEDS: DOCUSATE SODIUM 100MG CAPSULE PO PRN (09:10)
[2018-10-31] MEDS: CHOLECALCIFEROL (D3) 1000 UNIT TABLET PO SCH (09:11)
[2018-10-31] MEDS: METOPROLOL TARTRATE 25MG TABLET PO SCH ×2 (09:11→20:38)
[2018-10-31] MEDS: BRIMONIDINE 0.2% OPHTH DROPS 5ML RIGHTEYE SCH ×2 (10:51→17:10)
[2018-10-31 13:00] VITALS: BP 100/50
[2018-10-31] MEDS: LEVOFLOXACIN 250MG PREMIX 50 ML IV SCH (14:44)
[2018-10-31 17:23] VITALS: BP 115/71
[2018-10-31 20:00] VITALS: BP_SYST 98; BP_SYST 99; BP_DIAS 41; BP_DIAS 60
[2018-10-31] MEDS: ATORVASTATIN CALCIUM 40MG TABLET PO SCH (20:37)
[2018-11-01] MEDS: IPRATROPIUM/ALBUTEROL 0.5-3(2.5)MG/3ML NEB HHN SCH ×3 (03:00→21:31)
[2018-11-01] MEDS: GABAPENTIN 300MG CAPSULE PO SCH ×3 (06:08→21:07)
[2018-11-01] MEDS: LEVOTHYROXINE SODIUM 112MCG TABLET PO SCH (06:08)
[2018-11-01 08:00] VITALS: BP 148/46
[2018-11-01 10:10] LABS: PLATELET ESTIMATE NORMAL
[2018-11-01] MEDS: DAPSONE 25 MG PO SCH ×2 (11:07→16:30)
[2018-11-01] MEDS: CHOLECALCIFEROL (D3) 1000 UNIT TABLET PO SCH (11:07)
[2018-11-01] MEDS: METOPROLOL TARTRATE 25MG TABLET PO SCH ×2 (11:08→21:00)
[2018-11-01] MEDS: MIDODRINE HCL 5MG TABLET PO SCH ×3 (11:08→17:28)
[2018-11-01] MEDS: BRIMONIDINE 0.2% OPHTH DROPS 5ML RIGHTEYE SCH ×2 (11:09→16:30)
[2018-11-01] MEDS: LEVOFLOXACIN 250MG PREMIX 50 ML IV SCH (14:44)
[2018-11-01] MEDS: DOCUSATE SODIUM 100MG CAPSULE PO PRN (17:40)
[2018-11-01 20:00] VITALS: BP 109/47
[2018-11-01] MEDS: ATORVASTATIN CALCIUM 40MG TABLET PO SCH (21:07)
[2018-11-01] MEDS: ACETAMINOPHEN 325MG TABLET PO PRN (22:43)
[2018-11-02] VITALS (8 sets, daily range): BP systolic 105–146; BP diastolic 42–55
[2018-11-02] MEDS: IPRATROPIUM/ALBUTEROL 0.5-3(2.5)MG/3ML NEB HHN SCH ×4 (01:52→20:50)
[2018-11-02] MEDS: GABAPENTIN 300MG CAPSULE PO SCH ×3 (06:17→21:31)
[2018-11-02] MEDS: LEVOTHYROXINE SODIUM 112MCG TABLET PO SCH (06:17)
[2018-11-02] MEDS: DOCUSATE SODIUM 100MG CAPSULE PO PRN (06:17)
[2018-11-02 07:01] LABS: HEMATOCRIT. 23.8 % (36.0-48.0); HEMOGLOBIN. 7.5 g/dL (12.0-16.0); MEAN CORPUSCULAR HEMOGLOBIN 29.8 pg (28.0-32.0); MEAN CORPUSCULAR VOLUME 95.2 fL (81.0-99.0); MEAN PLATELET VOLUME 8.5 fl (7.4-10.4); PLATELET 290 x1000/uL (130-400); RED CELL DISTRIBUTION WIDTH 17.2 % (11.6-14.6)
[2018-11-02] MEDS: DAPSONE 25 MG PO SCH ×2 (10:03→17:38)
[2018-11-02] MEDS: MIDODRINE HCL 5MG TABLET PO SCH ×3 (10:04→17:38)
[2018-11-02] MEDS: CHOLECALCIFEROL (D3) 1000 UNIT TABLET PO SCH (10:04)
[2018-11-02] MEDS: METOPROLOL TARTRATE 25MG TABLET PO SCH ×2 (10:04→21:34)
[2018-11-02] MEDS: BRIMONIDINE 0.2% OPHTH DROPS 5ML RIGHTEYE SCH ×2 (10:05→17:33)
[2018-11-02 14:24] LABS: PLATELET ESTIMATE NORMAL
[2018-11-02] MEDS: LEVOFLOXACIN 250MG PREMIX 50 ML IV SCH ×2 (14:34→14:44)
[2018-11-02] MEDS: ATORVASTATIN CALCIUM 40MG TABLET PO SCH (21:31)
[2018-11-03] LABS: HEMATOCRIT 26.2 % (36.0-48.0); HEMOGLOBIN 8.4 g/dL (12.0-16.0)
[2018-11-03] MEDS: IPRATROPIUM/ALBUTEROL 0.5-3(2.5)MG/3ML NEB HHN SCH ×4 (02:10→20:14)
[2018-11-03] MEDS: GABAPENTIN 300MG CAPSULE PO SCH ×3 (05:50→21:17)
[2018-11-03] MEDS: LEVOTHYROXINE SODIUM 112MCG TABLET PO SCH (06:00)
[2018-11-03 08:00] VITALS: BP 111/56
[2018-11-03] MEDS: DAPSONE 25 MG PO SCH ×2 (08:34→16:43)
[2018-11-03] MEDS: MIDODRINE HCL 5MG TABLET PO SCH ×3 (08:34→16:44)
[2018-11-03] MEDS: CHOLECALCIFEROL (D3) 1000 UNIT TABLET PO SCH (08:34)
[2018-11-03] MEDS: BRIMONIDINE 0.2% OPHTH DROPS 5ML RIGHTEYE SCH ×2 (08:34→16:44)
[2018-11-03] MEDS: METOPROLOL TARTRATE 25MG TABLET PO SCH ×2 (08:35→21:00)
[2018-11-03] MEDS: DOCUSATE SODIUM 100MG CAPSULE PO PRN (10:57)
[2018-11-03] MEDS: NA PHOS,M-B/NA PHOS,DI-BA ENEMA 118ML PR PRN (12:48)
[2018-11-03 14:56] LABS: BG BASE EXCESS -4.5 mmol/L (-2.0-2.0); BG CARBOXYHEMOGLOBIN 1.8 % (0.5-1.5); BG DEOXYHEMOGLOBIN 5.6 % (0.0-5.0); BG HCO3 ACT 19.7 mmol/L (22.0-26.0); BG METHEMOGLOBIN 20.4 % (0.0-1.5); BG OXYGEN SATURATION 92.8 % (92.0-98.5); BG OXYHEMOGLOBIN 72.2 % (94.0-97.0); BG PH 7.394 (7.350-7.450); BG SAMPLE SITE RIGHT BRACHIAL; BG TOTAL HEMOGLOBIN 9.3 g/dL (12.0-18.0); BG VENT MODE ROOM AIR
[2018-11-03 20:00] VITALS: BP 101/47
[2018-11-03 21:00] VITALS: BP 106/43
[2018-11-03] MEDS: ATORVASTATIN CALCIUM 40MG TABLET PO SCH (21:17)
[2018-11-04] MEDS: IPRATROPIUM/ALBUTEROL 0.5-3(2.5)MG/3ML NEB HHN SCH ×4 (02:20→21:02)
[2018-11-04] MEDS: LEVOTHYROXINE SODIUM 112MCG TABLET PO SCH (06:20)
[2018-11-04] MEDS: GABAPENTIN 300MG CAPSULE PO SCH ×3 (06:20→21:27)
[2018-11-04 08:00] VITALS: BP 101/49
[2018-11-04] MEDS: METOPROLOL TARTRATE 25MG TABLET PO SCH ×2 (09:00→20:39)
[2018-11-04] MEDS: MIDODRINE HCL 5MG TABLET PO SCH ×3 (09:41→16:55)
[2018-11-04] MEDS: DAPSONE 25 MG PO SCH ×2 (09:42→16:55)
[2018-11-04] MEDS: ACETAMINOPHEN 325MG TABLET PO PRN (09:42)
[2018-11-04] MEDS: CHOLECALCIFEROL (D3) 1000 UNIT TABLET PO SCH (09:42)
[2018-11-04] MEDS: BRIMONIDINE 0.2% OPHTH DROPS 5ML RIGHTEYE SCH ×2 (09:43→16:56)
[2018-11-04 20:00] VITALS: BP 113/55
[2018-11-04] MEDS: ATORVASTATIN CALCIUM 40MG TABLET PO SCH (20:39)
[2018-11-04] MEDS ORDERED: HYDROCODONE/ACETAMINOPHEN 5/325MG TABLET PO PRN (21:00)
[2018-11-04 21:07] LABS: HEMATOCRIT 29.5 % (36.0-48.0); HEMOGLOBIN 9.3 g/dL (12.0-16.0); MEAN CORPUSCULAR HEMOGLOBIN 30.3 pg (28.0-32.0); MEAN CORPUSCULAR VOLUME 95.9 fL (81.0-99.0); PLATELET 272 x1000/uL (130-400); RED BLOOD CELL COUNT 3.07 mill/uL (4.2-5.4); RED CELL DISTRIBUTION WIDTH 17.8 % (11.6-14.6)
[2018-11-05] MEDS: IPRATROPIUM/ALBUTEROL 0.5-3(2.5)MG/3ML NEB HHN SCH ×4 (04:21→20:35)
[2018-11-05] MEDS: GABAPENTIN 300MG CAPSULE PO SCH ×3 (06:11→20:59)
[2018-11-05] MEDS: LEVOTHYROXINE SODIUM 112MCG TABLET PO SCH (06:12)
[2018-11-05 06:32] LABS: BASOPHILS % 0.5 % (0.0-2.0); EOSINOPHILS % 1.3 % (0.0-5.0); HEMATOCRIT. 26.1 % (36.0-48.0); HEMOGLOBIN. 8.3 g/dL (12.0-16.0); LYMPHOCYTES % 7.1 % (20.0-50.0); MEAN CORPUSCULAR HEMOGLOBIN 30.3 pg (28.0-32.0); MEAN CORPUSCULAR VOLUME 95.9 fL (81.0-99.0); MEAN PLATELET VOLUME 8.6 fl (7.4-10.4); MONOCYTES % 8.7 % (2.0-8.0); NEUTROPHILS % 82.4 % (40.0-76.0); PLATELET 232 x1000/uL (130-400); RED BLOOD CELL COUNT 2.73 mill/uL (4.2-5.4); RED CELL DISTRIBUTION WIDTH 17.7 % (11.6-14.6)
[2018-11-05 08:00] VITALS: BP 107/53
[2018-11-05] MEDS: METOPROLOL TARTRATE 25MG TABLET PO SCH ×2 (09:00→20:59)
[2018-11-05] MEDS: MIDODRINE HCL 5MG TABLET PO SCH ×3 (10:46→17:49)
[2018-11-05] MEDS: DAPSONE 25 MG PO SCH ×2 (10:46→17:49)
[2018-11-05] MEDS: CHOLECALCIFEROL (D3) 1000 UNIT TABLET PO SCH (10:46)
[2018-11-05] MEDS: BRIMONIDINE 0.2% OPHTH DROPS 5ML RIGHTEYE SCH ×2 (10:47→17:49)
[2018-11-05 20:00] VITALS: BP 105/46
[2018-11-05] MEDS: ATORVASTATIN CALCIUM 40MG TABLET PO SCH (20:59)
[2018-11-06] MEDS: IPRATROPIUM/ALBUTEROL 0.5-3(2.5)MG/3ML NEB HHN SCH ×4 (01:45→21:35)
[2018-11-06] MEDS: LEVOTHYROXINE SODIUM 112MCG TABLET PO SCH (06:31)
[2018-11-06] MEDS: GABAPENTIN 300MG CAPSULE PO SCH ×3 (06:33→21:58)
[2018-11-06] MEDS: METOPROLOL TARTRATE 25MG TABLET PO SCH ×2 (09:00→22:11)
[2018-11-06] MEDS: MIDODRINE HCL 5MG TABLET PO SCH ×3 (09:30→16:22)
[2018-11-06] MEDS: DAPSONE 25 MG PO SCH ×2 (09:31→16:22)
[2018-11-06] MEDS: CHOLECALCIFEROL (D3) 1000 UNIT TABLET PO SCH (09:31)
[2018-11-06] MEDS: BRIMONIDINE 0.2% OPHTH DROPS 5ML RIGHTEYE SCH ×2 (09:31→16:22)
[2018-11-06 09:49] VITALS: BP 100/56
[2018-11-06 20:00] VITALS: BP 106/51
[2018-11-06] MEDS: ATORVASTATIN CALCIUM 40MG TABLET PO SCH (21:58)
[2018-11-06] MEDS: HYDROCODONE/ACETAMINOPHEN 10/325MG TABLET PO PRN (22:11)
[2018-11-07] MEDS: IPRATROPIUM/ALBUTEROL 0.5-3(2.5)MG/3ML NEB HHN SCH ×4 (01:35→20:32)
[2018-11-07] MEDS: LEVOTHYROXINE SODIUM 112MCG TABLET PO SCH (06:12)
[2018-11-07] MEDS: GABAPENTIN 300MG CAPSULE PO SCH ×3 (06:12→21:36)
[2018-11-07 07:14] LABS: BASOPHILS % 0.8 % (0.0-2.0); EOSINOPHILS % 1.5 % (0.0-5.0); HEMATOCRIT. 26.9 % (36.0-48.0); HEMOGLOBIN. 8.5 g/dL (12.0-16.0); LYMPHOCYTES % 10.6 % (20.0-50.0); MEAN CORPUSCULAR HEMOGLOBIN 30.2 pg (28.0-32.0); MEAN CORPUSCULAR VOLUME 95.5 fL (81.0-99.0); MEAN PLATELET VOLUME 8.9 fl (7.4-10.4); MONOCYTES % 11.1 % (2.0-8.0); PLATELET 215 x1000/uL (130-400); RED BLOOD CELL COUNT 2.82 mill/uL (4.2-5.4); RED CELL DISTRIBUTION WIDTH 18.4 % (11.6-14.6)
[2018-11-07 08:00] VITALS: BP 107/44
[2018-11-07] MEDS: BRIMONIDINE 0.2% OPHTH DROPS 5ML RIGHTEYE SCH ×2 (08:50→17:39)
[2018-11-07] MEDS: MIDODRINE HCL 5MG TABLET PO SCH ×3 (08:50→17:39)
[2018-11-07] MEDS: CHOLECALCIFEROL (D3) 1000 UNIT TABLET PO SCH (08:50)
[2018-11-07] MEDS: DAPSONE 25 MG PO SCH ×2 (08:50→17:39)
[2018-11-07] MEDS: METOPROLOL TARTRATE 25MG TABLET PO SCH ×2 (08:51→21:36)
[2018-11-07] MEDS: HYDROCODONE/ACETAMINOPHEN 10/325MG TABLET PO PRN (17:39)
[2018-11-07 20:00] VITALS: BP 125/51
[2018-11-07] MEDS: ATORVASTATIN CALCIUM 40MG TABLET PO SCH (21:36)
[2018-11-08] MEDS: IPRATROPIUM/ALBUTEROL 0.5-3(2.5)MG/3ML NEB HHN SCH ×3 (00:56→13:36)
[2018-11-08] MEDS: GABAPENTIN 300MG CAPSULE PO SCH ×3 (06:04→21:02)
[2018-11-08] MEDS: LEVOTHYROXINE SODIUM 112MCG TABLET PO SCH (06:04)
[2018-11-08 07:57] LABS: BASOPHILS % 0.9 % (0.0-2.0); EOSINOPHILS % 1.6 % (0.0-5.0); HEMATOCRIT. 27.2 % (36.0-48.0); HEMOGLOBIN. 8.4 g/dL (12.0-16.0); MEAN CORPUSCULAR HEMOGLOBIN 30.2 pg (28.0-32.0); MEAN CORPUSCULAR VOLUME 97.2 fL (81.0-99.0); MEAN PLATELET VOLUME 9.1 fl (7.4-10.4); MONOCYTES % 10.9 % (2.0-8.0); NEUTROPHILS % 77.6 % (40.0-76.0); PLATELET 207 x1000/uL (130-400); RED BLOOD CELL COUNT 2.79 mill/uL (4.2-5.4); RED CELL DISTRIBUTION WIDTH 18.6 % (11.6-14.6)
[2018-11-08 08:00] VITALS: BP 127/54
[2018-11-08] MEDS: MIDODRINE HCL 5MG TABLET PO SCH ×3 (09:00→17:00)
[2018-11-08] MEDS: DAPSONE 25 MG PO SCH ×2 (09:04→17:59)
[2018-11-08] MEDS: CHOLECALCIFEROL (D3) 1000 UNIT TABLET PO SCH (09:05)
[2018-11-08] MEDS: METOPROLOL TARTRATE 25MG TABLET PO SCH ×2 (09:05→20:12)
[2018-11-08] MEDS: BRIMONIDINE 0.2% OPHTH DROPS 5ML RIGHTEYE SCH ×2 (09:06→17:59)
[2018-11-08 20:00] VITALS: BP 118/65
[2018-11-08] MEDS: ATORVASTATIN CALCIUM 40MG TABLET PO SCH (20:11)
[2018-11-09] MEDS: IPRATROPIUM/ALBUTEROL 0.5-3(2.5)MG/3ML NEB HHN SCH ×4 (02:02→21:10)
[2018-11-09] MEDS: NA PHOS,M-B/NA PHOS,DI-BA ENEMA 118ML PR PRN (04:16)
[2018-11-09] MEDS: GABAPENTIN 300MG CAPSULE PO SCH ×3 (05:26→22:09)
[2018-11-09] MEDS: LEVOTHYROXINE SODIUM 112MCG TABLET PO SCH (06:09)
[2018-11-09 08:39] VITALS: BP 134/50
[2018-11-09] MEDS: CHOLECALCIFEROL (D3) 1000 UNIT TABLET PO SCH (09:25)
[2018-11-09] MEDS: MIDODRINE HCL 5MG TABLET PO SCH ×3 (09:26→17:00)
[2018-11-09] MEDS: DAPSONE 25 MG PO SCH ×2 (09:26→17:25)
[2018-11-09] MEDS: METOPROLOL TARTRATE 25MG TABLET PO SCH ×2 (09:26→21:00)
[2018-11-09] MEDS: BRIMONIDINE 0.2% OPHTH DROPS 5ML RIGHTEYE SCH ×2 (09:27→17:30)
[2018-11-09 20:00] VITALS: BP 112/46
[2018-11-09] MEDS: ATORVASTATIN CALCIUM 40MG TABLET PO SCH (22:10)
[2018-11-10] MEDS: IPRATROPIUM/ALBUTEROL 0.5-3(2.5)MG/3ML NEB HHN SCH ×4 (02:20→19:40)
[2018-11-10] MEDS: LEVOTHYROXINE SODIUM 112MCG TABLET PO SCH (05:44)
[2018-11-10] MEDS: GABAPENTIN 300MG CAPSULE PO SCH ×3 (05:44→22:53)
[2018-11-10 07:19] LABS: BASOPHILS % 0.8 % (0.0-2.0); EOSINOPHILS % 1.6 % (0.0-5.0); HEMATOCRIT. 23.4 % (36.0-48.0); HEMOGLOBIN. 7.6 g/dL (12.0-16.0); LYMPHOCYTES % 11.8 % (20.0-50.0); MEAN CORPUSCULAR HEMOGLOBIN 31.1 pg (28.0-32.0); MEAN CORPUSCULAR VOLUME 96.4 fL (81.0-99.0); MEAN PLATELET VOLUME 9.3 fl (7.4-10.4); NEUTROPHILS % 72.8 % (40.0-76.0); PLATELET 147 x1000/uL (130-400); RED BLOOD CELL COUNT 2.43 mill/uL (4.2-5.4); RED CELL DISTRIBUTION WIDTH 18.6 % (11.6-14.6)
[2018-11-10 08:00] VITALS: BP 121/59
[2018-11-10] MEDS: MIDODRINE HCL 5MG TABLET PO SCH ×3 (09:00→17:00)
[2018-11-10] MEDS: METOPROLOL TARTRATE 25MG TABLET PO SCH ×2 (09:44→21:00)
[2018-11-10] MEDS: DAPSONE 25 MG PO SCH ×2 (09:44→17:19)
[2018-11-10] MEDS: CHOLECALCIFEROL (D3) 1000 UNIT TABLET PO SCH (09:45)
[2018-11-10] MEDS: BRIMONIDINE 0.2% OPHTH DROPS 5ML RIGHTEYE SCH ×2 (09:45→17:17)
[2018-11-10] MEDS: DOCUSATE SODIUM 100MG CAPSULE PO PRN (17:17)
[2018-11-10 20:00] VITALS: BP 119/57
[2018-11-10] MEDS: ATORVASTATIN CALCIUM 40MG TABLET PO SCH (22:53)
[2018-11-11] MEDS: IPRATROPIUM/ALBUTEROL 0.5-3(2.5)MG/3ML NEB HHN SCH ×4 (01:48→20:21)
[2018-11-11] MEDS: LEVOTHYROXINE SODIUM 112MCG TABLET PO SCH (06:07)
[2018-11-11] MEDS: GABAPENTIN 300MG CAPSULE PO SCH ×3 (06:07→21:53)
[2018-11-11 06:57] LABS: BASOPHILS % 0.7 % (0.0-2.0); EOSINOPHILS % 1.6 % (0.0-5.0); HEMATOCRIT. 25.3 % (36.0-48.0); HEMOGLOBIN. 8.1 g/dL (12.0-16.0); LYMPHOCYTES % 10.6 % (20.0-50.0); MEAN CORPUSCULAR HEMOGLOBIN 31.3 pg (28.0-32.0); MEAN CORPUSCULAR VOLUME 97.2 fL (81.0-99.0); MEAN PLATELET VOLUME 9.4 fl (7.4-10.4); MONOCYTES % 11.7 % (2.0-8.0); NEUTROPHILS % 75.4 % (40.0-76.0); PLATELET 148 x1000/uL (130-400); RED BLOOD CELL COUNT 2.61 mill/uL (4.2-5.4); RED CELL DISTRIBUTION WIDTH 18.7 % (11.6-14.6)
[2018-11-11 08:00] VITALS: BP 119/52
[2018-11-11] MEDS: METOPROLOL TARTRATE 25MG TABLET PO SCH ×2 (09:00→21:53)
[2018-11-11] MEDS: CHOLECALCIFEROL (D3) 1000 UNIT TABLET PO SCH (09:21)
[2018-11-11] MEDS: DAPSONE 25 MG PO SCH ×2 (09:22→17:55)
[2018-11-11] MEDS: MIDODRINE HCL 5MG TABLET PO SCH ×3 (09:22→17:55)
[2018-11-11] MEDS: BRIMONIDINE 0.2% OPHTH DROPS 5ML RIGHTEYE SCH ×2 (09:23→17:55)
[2018-11-11 20:00] VITALS: BP 122/64
[2018-11-11] MEDS: ATORVASTATIN CALCIUM 40MG TABLET PO SCH (21:53)
[2018-11-12] MEDS: LEVOTHYROXINE SODIUM 112MCG TABLET PO SCH (06:37)
[2018-11-12] MEDS: GABAPENTIN 300MG CAPSULE PO SCH ×3 (06:37→23:16)
[2018-11-12 08:00] VITALS: BP 127/54
[2018-11-12] MEDS: DAPSONE 25 MG PO SCH ×2 (08:43→17:32)
[2018-11-12] MEDS: METOPROLOL TARTRATE 25MG TABLET PO SCH ×2 (08:44→20:41)
[2018-11-12] MEDS: CHOLECALCIFEROL (D3) 1000 UNIT TABLET PO SCH (08:44)
[2018-11-12] MEDS: MIDODRINE HCL 5MG TABLET PO SCH ×3 (08:44→17:33)
[2018-11-12] MEDS: BRIMONIDINE 0.2% OPHTH DROPS 5ML RIGHTEYE SCH ×2 (08:44→17:33)
[2018-11-12] MEDS: IPRATROPIUM/ALBUTEROL 0.5-3(2.5)MG/3ML NEB HHN SCH ×2 (09:51→21:01)
[2018-11-12] MEDS ORDERED: LIDOCAINE HCL/EPINEPHRINE 1%-EPI 1:100,000 20 ML VIAL INFIL SCH (15:00)
[2018-11-12] MEDS ORDERED: LACTULOSE 20G/30ML UDC PO PRN (15:15)
[2018-11-12] MEDS: DOCUSATE SODIUM 100MG CAPSULE PO SCH (17:32)
[2018-11-12 20:00] VITALS: BP 132/66
[2018-11-12] MEDS: ATORVASTATIN CALCIUM 40MG TABLET PO SCH (20:41)
[2018-11-13] MEDS: IPRATROPIUM/ALBUTEROL 0.5-3(2.5)MG/3ML NEB HHN SCH ×3 (01:55→21:12)
[2018-11-13] MEDS: GABAPENTIN 300MG CAPSULE PO SCH ×3 (05:46→21:35)
[2018-11-13] MEDS: LEVOTHYROXINE SODIUM 112MCG TABLET PO SCH (06:04)
[2018-11-13] MEDS: DOCUSATE SODIUM 100MG CAPSULE PO SCH ×2 (08:45→17:30)
[2018-11-13] MEDS: METOPROLOL TARTRATE 25MG TABLET PO SCH ×2 (08:45→21:35)
[2018-11-13] MEDS: DAPSONE 25 MG PO SCH ×2 (08:45→17:29)
[2018-11-13] MEDS: CHOLECALCIFEROL (D3) 1000 UNIT TABLET PO SCH (08:45)
[2018-11-13] MEDS: MIDODRINE HCL 5MG TABLET PO SCH ×3 (08:46→17:30)
[2018-11-13] MEDS: BRIMONIDINE 0.2% OPHTH DROPS 5ML RIGHTEYE SCH ×2 (08:46→17:34)
[2018-11-13 08:49] VITALS: BP 126/57
[2018-11-13 20:00] VITALS: BP 151/62
[2018-11-13] MEDS: ATORVASTATIN CALCIUM 40MG TABLET PO SCH (21:35)
[2018-11-14] MEDS: IPRATROPIUM/ALBUTEROL 0.5-3(2.5)MG/3ML NEB HHN SCH ×4 (01:02→21:09)
[2018-11-14] MEDS: LEVOTHYROXINE SODIUM 112MCG TABLET PO SCH (06:10)
[2018-11-14] MEDS: GABAPENTIN 300MG CAPSULE PO SCH ×3 (06:10→21:44)
[2018-11-14 07:24] LABS: BASOPHILS % 0.7 % (0.0-2.0); EOSINOPHILS % 2.2 % (0.0-5.0); HEMATOCRIT. 24.2 % (36.0-48.0); HEMOGLOBIN. 7.8 g/dL (12.0-16.0); LYMPHOCYTES % 15.1 % (20.0-50.0); MEAN CORPUSCULAR HEMOGLOBIN 31.6 pg (28.0-32.0); MEAN CORPUSCULAR VOLUME 98.7 fL (81.0-99.0); MEAN PLATELET VOLUME 9.7 fl (7.4-10.4); MONOCYTES % 12.5 % (2.0-8.0); NEUTROPHILS % 69.5 % (40.0-76.0); PLATELET 116 x1000/uL (130-400); RED BLOOD CELL COUNT 2.45 mill/uL (4.2-5.4); RED CELL DISTRIBUTION WIDTH 19.5 % (11.6-14.6)
[2018-11-14 08:27] VITALS: BP 138/70
[2018-11-14] MEDS: MIDODRINE HCL 5MG TABLET PO SCH ×3 (09:00→17:00)
[2018-11-14] MEDS: CHOLECALCIFEROL (D3) 1000 UNIT TABLET PO SCH (09:42)
[2018-11-14] MEDS: BRIMONIDINE 0.2% OPHTH DROPS 5ML RIGHTEYE SCH ×2 (09:42→17:04)
[2018-11-14] MEDS: DOCUSATE SODIUM 100MG CAPSULE PO SCH ×2 (09:42→17:04)
[2018-11-14] MEDS: METOPROLOL TARTRATE 25MG TABLET PO SCH ×2 (09:43→20:37)
[2018-11-14] MEDS: DAPSONE 25 MG PO SCH ×2 (09:43→17:04)
[2018-11-14 20:00] VITALS: BP 119/63
[2018-11-14] MEDS: ATORVASTATIN CALCIUM 40MG TABLET PO SCH (20:36)
[2018-11-14] MEDS ORDERED: EPOETIN ALFA 10000UNITS/ML VIAL SUBCUT SCH (21:00)
[2018-11-15] MEDS: IPRATROPIUM/ALBUTEROL 0.5-3(2.5)MG/3ML NEB HHN SCH ×3 (01:09→12:13)
[2018-11-15] MEDS: GABAPENTIN 300MG CAPSULE PO SCH ×2 (05:31→14:13)
[2018-11-15] MEDS: LEVOTHYROXINE SODIUM 112MCG TABLET PO SCH (06:07)
[2018-11-15 08:39] VITALS: BP 136/65
[2018-11-15] MEDS: MIDODRINE HCL 5MG TABLET PO SCH ×2 (09:00→13:00)
[2018-11-15] MEDS: CHOLECALCIFEROL (D3) 1000 UNIT TABLET PO SCH (09:31)
[2018-11-15] MEDS: METOPROLOL TARTRATE 25MG TABLET PO SCH (09:31)
[2018-11-15] MEDS: BRIMONIDINE 0.2% OPHTH DROPS 5ML RIGHTEYE SCH (09:31)
[2018-11-15] MEDS: DOCUSATE SODIUM 100MG CAPSULE PO SCH (09:31)
[2018-11-15] MEDS: DAPSONE 25 MG PO SCH (09:31)
[2018-11-15 10:34] VITALS: BP 136/65
== END 2018-11-15 15:40 | disposition home health service (06) | DRG 463 ==
PROVIDERS: ADMIT Psychiatry & Neurology Neurology; ATTEND Internal Medicine
PROC: 0JB70ZZ Excision of Back Subcutaneous Tissue and Fascia, Open Approach (ICD-10-PCS; principal; 2018-11-14)
DX: S72.012A Unspecified intracapsular fracture of left femur, initial encounter for closed fracture (principal); A41.51 Sepsis due to Escherichia coli [E. coli]; I21.9 Acute myocardial infarction, unspecified; N39.0 Urinary tract infection, site not specified; G93.40 Encephalopathy, unspecified; M62.82 Rhabdomyolysis; D74.9 Methemoglobinemia, unspecified; N17.9 Acute kidney failure, unspecified; L97.929 Non-pressure chronic ulcer of unspecified part of left lower leg with unspecified severity; W01.0XXA Fall on same level from slipping, tripping and stumbling without subsequent striking against object, initial encounter; E78.5 Hyperlipidemia, unspecified; I48.91 Unspecified atrial fibrillation; R53.81 Other malaise; I25.10 Atherosclerotic heart disease of native coronary artery without angina pectoris; I25.5 Ischemic cardiomyopathy; I27.20 Pulmonary hypertension, unspecified; R15.9 Full incontinence of feces; R32 Unspecified urinary incontinence; H54.8 Legal blindness, as defined in USA; D64.9 Anemia, unspecified; M19.90 Unspecified osteoarthritis, unspecified site; D69.6 Thrombocytopenia, unspecified; I12.9 Hypertensive chronic kidney disease with stage 1 through stage 4 chronic kidney disease, or unspecified chronic kidney disease; N18.9 Chronic kidney disease, unspecified; M21.379 Foot drop, unspecified foot; Z96.642 Presence of left artificial hip joint; L89.159 Pressure ulcer of sacral region, unspecified stage; G90.8 Other disorders of autonomic nervous system; Y93.89 Activity, other specified; Y92.89 Other specified places as the place of occurrence of the external cause; Y99.8 Other external cause status; I25.2 Old myocardial infarction; Z95.5 Presence of coronary angioplasty implant and graft; Z79.82 Long term (current) use of aspirin; Z91.81 History of falling; Z95.0 Presence of cardiac pacemaker; Z79.02 Long term (current) use of antithrombotics/antiplatelets; Z79.899 Other long term (current) drug therapy
CPT/HCPCS: 36415; 36600; 80048; 82270; 82375; 82550; 82805; 83735; 84134; 85014; 85018; 85027; 86850; 86900; 86920; 92610; 93005; 93970; 94640; 97110; 97116; 97163; 97167; 97530; 97535; C1893; J0885; J1956; J3490; J7040; J7050; J7620; P9016; A5200

== ENCOUNTER 2018-12-03 16:16 | Inpatient (IN) | payer MEDICARE, OTHER ==
[~2018-12-03] VITALS: Ht 177.8 cm; Wt 105.7 kg
[~2018-12-03 16:16] MED LIST changes: -ASPI-1159 PO; -TICA90TA PO
[2018-12-03 19:11] LABS: HEMATOCRIT. 29.8 % (36.0-48.0); HEMOGLOBIN. 9.3 g/dL (12.0-16.0); MEAN CORPUSCULAR HEMOGLOBIN 30.8 pg (28.0-32.0); MEAN CORPUSCULAR VOLUME 99.1 fL (81.0-99.0); MEAN PLATELET VOLUME 9.6 fl (7.4-10.4); PLATELET 163 x1000/uL (130-400); RED BLOOD CELL COUNT 3.01 mill/uL (4.2-5.4); RED CELL DISTRIBUTION WIDTH 15.1 % (11.6-14.6)
[2018-12-03 19:17] LABS: CHLORIDE 108 mEq/L (98-107)
[2018-12-03 19:19] LABS: PROTHROMBIN TIME 10.5 sec (9.1-11.1)
[2018-12-03 19:30] LABS: PLATELET ESTIMATE NORMAL
[2018-12-03] MEDS ORDERED: KCL 20MEQ/100ML PREMIX 100 ML IV ONE (19:45)
[2018-12-03] MEDS ORDERED: MAGNESIUM/ALUMINUM HYDROXIDE/SIMETHICONE 30ML UDC PO PRN (21:00)
[2018-12-03] MEDS ORDERED: DOCUSATE SODIUM 100MG CAPSULE PO PRN (21:00)
[2018-12-03] MEDS ORDERED: CLONIDINE 0.1MG TABLET PO PRN (21:00)
[2018-12-03] MEDS ORDERED: ONDANSETRON HCL 4MG/2ML INJ IV PRN (21:00)
[2018-12-03] MEDS ORDERED: IPRATROPIUM/ALBUTEROL 0.5-3(2.5)MG/3ML NEB INH PRN (21:00)
[2018-12-03] MEDS ORDERED: DIPHENHYDRAMINE 50MG/ML VIAL IV PRN (21:00)
[2018-12-03] MEDS ORDERED: GUAIFENESIN 200MG/10ML SUGAR FREE UDC PO PRN (21:00)
[2018-12-03] MEDS ORDERED: LORAZEPAM 2MG/ML CPJ IV PRN (21:00)
[2018-12-03] MEDS ORDERED: HYDRALAZINE 20MG/ML VIAL IV PRN (21:00)
[2018-12-03 21:07] LABS: CLARITY URINE CLOUDY (CLEAR); COLOR URINE YELLOW (YELLOW); KETONES URINE NEGATIVE (NEGATIVE); LEUKOCYTE ESTERASE URINE 3+ (NEGATIVE); NITRITE URINE NEGATIVE (NEGATIVE); OCCULT BLOOD URINE NEGATIVE (NEGATIVE); PROTEIN URINE NEGATIVE (NEGATIVE); SPECIFIC GRAVITY URINE 1.015 (1.005-1.030)
[2018-12-03] MEDS ORDERED: HYDROMORPHONE HCL/PF 2MG/ML CPJ IV PRN (22:30)
[2018-12-03 22:57] VITALS: BP 151/69
[2018-12-04] MEDS: SODIUM CHLORIDE 0.9% INJ 3ML FLUSH IVF SCH ×3 (06:12→23:10)
[2018-12-04 07:53] LABS: BASOPHILS % 0.6 % (0.0-2.0); EOSINOPHILS % 1.2 % (0.0-5.0); HEMATOCRIT. 27.5 % (36.0-48.0); HEMOGLOBIN. 8.7 g/dL (12.0-16.0); LYMPHOCYTES % 9.8 % (20.0-50.0); MEAN CORPUSCULAR HEMOGLOBIN 31.5 pg (28.0-32.0); MEAN CORPUSCULAR VOLUME 98.8 fL (81.0-99.0); MEAN PLATELET VOLUME 9.4 fl (7.4-10.4); MONOCYTES % 11.2 % (2.0-8.0); NEUTROPHILS % 77.2 % (40.0-76.0); PLATELET 159 x1000/uL (130-400); RED BLOOD CELL COUNT 2.78 mill/uL (4.2-5.4); RED CELL DISTRIBUTION WIDTH 15.4 % (11.6-14.6)
[2018-12-04 07:57] LABS: CHLORIDE 111 mEq/L (98-107)
[2018-12-04 08:00] VITALS: BP 137/68
[2018-12-04] MEDS ORDERED: HYDRALAZINE 10 MG in SODIUM CHLORIDE 0.9% 49.5 ML IV PRN (08:00)
[2018-12-04] MEDS ORDERED: ENOXAPARIN 40MG/0.4ML SYR SUBCUT SCH (09:00)
[2018-12-04] MEDS ORDERED: ENOXAPARIN 30MG/0.3ML SYR SUBCUT SCH (09:00)
[2018-12-04] MEDS: ASPIRIN 81MG EC TABLET PO SCH (09:00)
[2018-12-04] MEDS ORDERED: POTASSIUM CHLORIDE 20MEQ TABLET SR PO NR (09:30)
[2018-12-04] MEDS ORDERED: METOPROLOL TARTRATE 5MG/5ML VIAL IV SCH (10:45)
[2018-12-04 12:00] VITALS: BP 140/66
[2018-12-04 16:00] VITALS: BP 142/77
[2018-12-04 20:00] VITALS: BP 180/86
[2018-12-04 20:11] VITALS: BP 150/76
[2018-12-04] MEDS: DEXTROSE 5% WATER 1,000 ML IV SCH (23:10)
[2018-12-05] VITALS (7 sets, daily range): BP systolic 147–174; BP diastolic 72–93
[2018-12-05] MEDS: DEXTROSE 5% WATER 1,000 ML IV SCH (01:58)
[2018-12-05] MEDS: SODIUM CHLORIDE 0.9% INJ 3ML FLUSH IVF SCH ×3 (06:14→21:29)
[2018-12-05] MEDS: BRIMONIDINE 0.2% OPHTH DROPS 5ML RIGHTEYE SCH ×2 (09:00→19:00)
[2018-12-05] MEDS: ASPIRIN 81MG EC TABLET PO SCH (09:00)
[2018-12-05] MEDS: ENOXAPARIN 40MG/0.4ML SYR SUBCUT SCH (09:00)
[2018-12-05 10:14] LABS: CHLORIDE 111 mEq/L (98-107)
[2018-12-05 10:32] LABS: HEMATOCRIT. 26.4 % (36.0-48.0); HEMOGLOBIN. 8.5 g/dL (12.0-16.0); MEAN CORPUSCULAR HEMOGLOBIN 31.6 pg (28.0-32.0); MEAN CORPUSCULAR VOLUME 98.9 fL (81.0-99.0); PLATELET 159 x1000/uL (130-400); RED BLOOD CELL COUNT 2.67 mill/uL (4.2-5.4); RED CELL DISTRIBUTION WIDTH 15.3 % (11.6-14.6)
[2018-12-05] MEDS ORDERED: BACITRACIN 15GM TUBE TOP ONE (13:35)
[2018-12-05] MEDS ORDERED: BACITRACIN 50,000 UNITS/VIAL ONE ×2 (13:36→13:39)
[2018-12-05] MEDS ORDERED: VANCOMYCIN HCL 500 MG/VIAL ONE ×4 (13:36→16:15)
[2018-12-05] MEDS ORDERED: NORMAL SALINE 0.9% 10 ML SYR ONE ×2 (13:36→13:40)
[2018-12-05] MEDS ORDERED: ETOMIDATE 2MG/ML 10ML VIAL IV ONE ×2 (14:55→14:56)
[2018-12-05] MEDS ORDERED: FENTANYL CITRATE/PF 50MCG/ML 2ML VIAL ONE ×2 (14:55→16:56)
[2018-12-05] MEDS ORDERED: ONDANSETRON HCL 4MG/2ML INJ ONE (14:58)
[2018-12-05] MEDS ORDERED: KCL 20MEQ/100ML PREMIX 100 ML IV NR (15:00)
[2018-12-05] MEDS ORDERED: PROPOFOL 200MG/20ML VIAL IV ONE (15:34)
[2018-12-05] MEDS ORDERED: SUCCINYLCHOLINE CHLORIDE 200MG/10ML IV ONE (15:38)
[2018-12-05] MEDS ORDERED: TRANEXAMIC ACID 1,000 MG in SODIUM CHLORIDE 0.9% 100 ML IV NR (15:45)
[2018-12-05] MEDS ORDERED: CEFAZOLIN SODIUM 1000MG/VIAL ONE (16:14)
[2018-12-05] MEDS ORDERED: METOPROLOL TARTRATE 5MG/5ML VIAL IV ONE (16:20)
[2018-12-05] MEDS ORDERED: FENTANYL CITRATE/PF 50MCG/ML 2ML VIAL IV PRN ×3 (17:10→17:15)
[2018-12-05] MEDS ORDERED: DEXAMETHASONE 10 MG/ML VIAL IV PRN (17:15)
[2018-12-06] VITALS (7 sets, daily range): BP systolic 105–144; BP diastolic 44–70
[2018-12-06] MEDS: DEXTROSE 5% WATER 1,000 ML IV SCH ×2 (02:58→11:37)
[2018-12-06] MEDS: HYDROCODONE/ACETAMINOPHEN 10/325MG TABLET PO PRN ×2 (02:59→12:13)
[2018-12-06 03:35] LABS: PLATELET ESTIMATE NORMAL
[2018-12-06 06:37] LABS: CHLORIDE 110 mEq/L (98-107)
[2018-12-06 06:41] LABS: HEMATOCRIT. 23.7 % (36.0-48.0); HEMOGLOBIN. 7.5 g/dL (12.0-16.0); MEAN CORPUSCULAR HEMOGLOBIN 31.2 pg (28.0-32.0); MEAN CORPUSCULAR VOLUME 98.7 fL (81.0-99.0); MEAN PLATELET VOLUME 9.9 fl (7.4-10.4); PLATELET 138 x1000/uL (130-400); RED BLOOD CELL COUNT 2.41 mill/uL (4.2-5.4); RED CELL DISTRIBUTION WIDTH 15.5 % (11.6-14.6)
[2018-12-06] MEDS: SODIUM CHLORIDE 0.9% INJ 3ML FLUSH IVF SCH ×3 (06:54→21:00)
[2018-12-06] MEDS: BRIMONIDINE 0.2% OPHTH DROPS 5ML RIGHTEYE SCH ×2 (08:59→18:32)
[2018-12-06] MEDS: ENOXAPARIN 40MG/0.4ML SYR SUBCUT SCH (08:59)
[2018-12-06] MEDS: ASPIRIN 81MG EC TABLET PO SCH (08:59)
[2018-12-06 11:03] LABS: PLATELET ESTIMATE NORMAL
[2018-12-06] MEDS ORDERED: MAGNESIUM 1 G PREMIX 100 ML IV NR (15:00)
[2018-12-06] MEDS: METOPROLOL TARTRATE 25MG TABLET PO SCH (20:46)
[2018-12-06] MEDS: MOXIFLOXACIN 0.5% OP SCH ×2 (20:57→21:25)
[2018-12-07] MEDS: ACETAMINOPHEN 325MG TABLET PO PRN (00:04)
[2018-12-07] MEDS: DEXTROSE 5% WATER 1,000 ML IV SCH ×2 (03:49→22:23)
[2018-12-07 04:07] VITALS: BP 115/55
[2018-12-07] MEDS: SODIUM CHLORIDE 0.9% INJ 3ML FLUSH IVF SCH ×3 (05:29→22:20)
[2018-12-07 07:31] LABS: HEMATOCRIT. 24.3 % (36.0-48.0); HEMOGLOBIN. 7.8 g/dL (12.0-16.0); MEAN CORPUSCULAR HEMOGLOBIN 31.7 pg (28.0-32.0); MEAN CORPUSCULAR VOLUME 98.9 fL (81.0-99.0); MEAN PLATELET VOLUME 9.6 fl (7.4-10.4); PLATELET 140 x1000/uL (130-400); RED BLOOD CELL COUNT 2.46 mill/uL (4.2-5.4); RED CELL DISTRIBUTION WIDTH 15.5 % (11.6-14.6)
[2018-12-07 07:56] LABS: CHLORIDE 107 mEq/L (98-107)
[2018-12-07 08:24] VITALS: BP 112/53
[2018-12-07] MEDS: ASPIRIN 81MG EC TABLET PO SCH (08:26)
[2018-12-07] MEDS: ENOXAPARIN 40MG/0.4ML SYR SUBCUT SCH (08:27)
[2018-12-07] MEDS: BRIMONIDINE 0.2% OPHTH DROPS 5ML RIGHTEYE SCH ×2 (08:27→18:18)
[2018-12-07] MEDS: METOPROLOL TARTRATE 25MG TABLET PO SCH ×2 (08:27→21:00)
[2018-12-07] MEDS: MOXIFLOXACIN 0.5% OP SCH ×3 (08:27→18:18)
[2018-12-07 10:27] LABS: PLATELET ESTIMATE NORMAL
[2018-12-07 12:23] VITALS: BP 105/50
[2018-12-07 20:00] VITALS: BP 105/50
[2018-12-07] MEDS: HYDROCODONE/ACETAMINOPHEN 10/325MG TABLET PO PRN (22:20)
[2018-12-08] VITALS: BP 112/50
[2018-12-08 05:49] VITALS: BP 110/56
[2018-12-08] MEDS: SODIUM CHLORIDE 0.9% INJ 3ML FLUSH IVF SCH ×3 (06:00→21:46)
[2018-12-08 08:50] VITALS: BP 116/54
[2018-12-08] MEDS: METOPROLOL TARTRATE 25MG TABLET PO SCH ×2 (09:00→21:52)
[2018-12-08] MEDS: ASPIRIN 81MG EC TABLET PO SCH (09:08)
[2018-12-08] MEDS: ENOXAPARIN 40MG/0.4ML SYR SUBCUT SCH (09:09)
[2018-12-08] MEDS: BRIMONIDINE 0.2% OPHTH DROPS 5ML RIGHTEYE SCH ×2 (09:10→17:44)
[2018-12-08] MEDS: MOXIFLOXACIN 0.5% OP SCH ×3 (09:10→17:45)
[2018-12-08 12:11] VITALS: BP 128/66
[2018-12-08] MEDS: DEXTROSE 5% WATER 1,000 ML IV SCH (12:30)
[2018-12-08 17:04] VITALS: BP 116/53
[2018-12-08 20:00] VITALS: BP 133/61
[2018-12-09] VITALS: BP 112/59
[2018-12-09 04:00] VITALS: BP 138/66
[2018-12-09] MEDS: SODIUM CHLORIDE 0.9% INJ 3ML FLUSH IVF SCH ×3 (06:21→20:28)
[2018-12-09] MEDS: DEXTROSE 5% WATER 1,000 ML IV SCH ×2 (06:22→22:38)
[2018-12-09 07:22] LABS: HEMATOCRIT. 24.3 % (36.0-48.0); HEMOGLOBIN. 7.7 g/dL (12.0-16.0); MEAN CORPUSCULAR HEMOGLOBIN 31.4 pg (28.0-32.0); MEAN CORPUSCULAR VOLUME 99.2 fL (81.0-99.0); MEAN PLATELET VOLUME 9.7 fl (7.4-10.4); PLATELET 174 x1000/uL (130-400); RED BLOOD CELL COUNT 2.45 mill/uL (4.2-5.4); RED CELL DISTRIBUTION WIDTH 15.2 % (11.6-14.6)
[2018-12-09 07:47] LABS: CHLORIDE 104 mEq/L (98-107)
[2018-12-09 08:00] VITALS: BP 111/56
[2018-12-09] MEDS: METOPROLOL TARTRATE 25MG TABLET PO SCH ×2 (10:16→20:27)
[2018-12-09] MEDS: ASPIRIN 81MG EC TABLET PO SCH (10:16)
[2018-12-09] MEDS: ENOXAPARIN 40MG/0.4ML SYR SUBCUT SCH (10:17)
[2018-12-09] MEDS: BRIMONIDINE 0.2% OPHTH DROPS 5ML RIGHTEYE SCH ×2 (11:09→20:28)
[2018-12-09] MEDS: MOXIFLOXACIN 0.5% OP SCH ×3 (11:11→20:28)
[2018-12-09 11:47] LABS: PLATELET ESTIMATE NORMAL
[2018-12-09 12:00] VITALS: BP 109/45
[2018-12-09 16:00] VITALS: BP 114/64
[2018-12-09 20:26] VITALS: BP 138/61
[2018-12-10] VITALS (7 sets, daily range): BP systolic 128–148; BP diastolic 64–94
[2018-12-10] MEDS: SODIUM CHLORIDE 0.9% INJ 3ML FLUSH IVF SCH ×3 (06:33→21:15)
[2018-12-10] MEDS: MOXIFLOXACIN 0.5% OP SCH ×3 (08:45→17:28)
[2018-12-10] MEDS: ASPIRIN 81MG EC TABLET PO SCH (08:46)
[2018-12-10] MEDS: BRIMONIDINE 0.2% OPHTH DROPS 5ML RIGHTEYE SCH ×2 (08:46→17:28)
[2018-12-10] MEDS: METOPROLOL TARTRATE 25MG TABLET PO SCH ×2 (08:46→21:15)
[2018-12-10] MEDS: ENOXAPARIN 40MG/0.4ML SYR SUBCUT SCH (08:48)
[2018-12-10] MEDS: DEXTROSE 5% WATER 1,000 ML IV SCH (17:28)
[2018-12-11 04:00] VITALS: BP 135/59
[2018-12-11 06:33] LABS: HEMATOCRIT. 25.4 % (36.0-48.0); HEMOGLOBIN. 8.2 g/dL (12.0-16.0); MEAN CORPUSCULAR HEMOGLOBIN 31.5 pg (28.0-32.0); MEAN PLATELET VOLUME 9.2 fl (7.4-10.4); PLATELET 198 x1000/uL (130-400); RED BLOOD CELL COUNT 2.61 mill/uL (4.2-5.4); RED CELL DISTRIBUTION WIDTH 14.9 % (11.6-14.6)
[2018-12-11] MEDS: SODIUM CHLORIDE 0.9% INJ 3ML FLUSH IVF SCH ×3 (06:36→21:27)
[2018-12-11 07:22] LABS: CHLORIDE 106 mEq/L (98-107)
[2018-12-11 08:00] VITALS: BP 140/64
[2018-12-11] MEDS: METOPROLOL TARTRATE 25MG TABLET PO SCH ×2 (09:00→21:26)
[2018-12-11] MEDS ORDERED: LORATADINE 10MG TABLET PO PRN (10:00)
[2018-12-11] MEDS: ASPIRIN 81MG EC TABLET PO SCH (10:15)
[2018-12-11] MEDS: ENOXAPARIN 40MG/0.4ML SYR SUBCUT SCH (10:16)
[2018-12-11] MEDS: LEVOTHYROXINE SODIUM 112MCG TABLET PO SCH (10:16)
[2018-12-11] MEDS: BRIMONIDINE 0.2% OPHTH DROPS 5ML RIGHTEYE SCH ×2 (10:16→18:41)
[2018-12-11] MEDS: LISINOPRIL 20MG TABLET PO SCH (10:16)
[2018-12-11] MEDS: MOXIFLOXACIN 0.5% OP SCH ×3 (10:17→18:41)
[2018-12-11 11:36] VITALS: BP 134/61
[2018-12-11] MEDS: DAPSONE 25 MG PO SCH ×2 (14:20→21:27)
[2018-12-11 16:05] VITALS: BP 150/76
[2018-12-11 19:58] VITALS: BP 129/77
[2018-12-11] MEDS: GABAPENTIN 300MG CAPSULE PO SCH (21:26)
[2018-12-11] MEDS: ATORVASTATIN CALCIUM 40MG TABLET PO SCH (21:29)
[2018-12-12] VITALS (8 sets, daily range): BP systolic 104–168; BP diastolic 54–69
[2018-12-12] MEDS: LEVOTHYROXINE SODIUM 112MCG TABLET PO SCH (06:03)
[2018-12-12] MEDS: SODIUM CHLORIDE 0.9% INJ 3ML FLUSH IVF SCH ×3 (06:03→21:04)
[2018-12-12] MEDS: ASPIRIN 81MG EC TABLET PO SCH (08:37)
[2018-12-12] MEDS: MOXIFLOXACIN 0.5% OP SCH ×3 (08:38→18:10)
[2018-12-12] MEDS: BRIMONIDINE 0.2% OPHTH DROPS 5ML RIGHTEYE SCH ×2 (08:38→18:10)
[2018-12-12] MEDS: METOPROLOL TARTRATE 25MG TABLET PO SCH ×2 (08:46→21:04)
[2018-12-12] MEDS: LISINOPRIL 20MG TABLET PO SCH (08:46)
[2018-12-12] MEDS: DAPSONE 25 MG PO SCH ×2 (09:44→18:09)
[2018-12-12] MEDS: ENOXAPARIN 40MG/0.4ML SYR SUBCUT SCH (09:48)
[2018-12-12 12:08] LABS: PLATELET ESTIMATE NORMAL
[2018-12-12] MEDS: ENOXAPARIN 30MG/0.3ML SYR SUBCUT SCH (21:03)
[2018-12-12] MEDS: GABAPENTIN 300MG CAPSULE PO SCH (21:04)
[2018-12-12] MEDS: ATORVASTATIN CALCIUM 40MG TABLET PO SCH (21:04)
[2018-12-13 00:18] VITALS: BP 115/60
[2018-12-13 04:00] VITALS: BP 112/57
[2018-12-13] MEDS: LEVOTHYROXINE SODIUM 112MCG TABLET PO SCH (06:21)
[2018-12-13] MEDS: SODIUM CHLORIDE 0.9% INJ 3ML FLUSH IVF SCH ×3 (06:22→21:16)
[2018-12-13 08:00] VITALS: BP 129/68
[2018-12-13] MEDS: ENOXAPARIN 30MG/0.3ML SYR SUBCUT SCH ×2 (09:09→20:51)
[2018-12-13] MEDS: METOPROLOL TARTRATE 25MG TABLET PO SCH ×2 (09:10→20:51)
[2018-12-13] MEDS: ASPIRIN 81MG EC TABLET PO SCH (09:11)
[2018-12-13] MEDS: LISINOPRIL 20MG TABLET PO SCH (09:11)
[2018-12-13] MEDS: BRIMONIDINE 0.2% OPHTH DROPS 5ML RIGHTEYE SCH ×2 (09:13→17:15)
[2018-12-13] MEDS: DAPSONE 25 MG PO SCH (09:16)
[2018-12-13] MEDS: MOXIFLOXACIN 0.5% OP SCH ×3 (09:24→17:21)
[2018-12-13] MEDS: ACETAMINOPHEN 325MG TABLET PO PRN (10:03)
[2018-12-13 12:00] VITALS: BP 105/51
[2018-12-13] MEDS ORDERED: HYDROCODONE/ACETAMINOPHEN 5/325MG TABLET PO PRN (13:30)
[2018-12-13 16:00] VITALS: BP 119/50
[2018-12-13] MEDS: SULFAMETHOXAZOLE/TRIMETHOPRIM 800/160MG TABLET PO SCH (17:19)
[2018-12-13] MEDS: DAPSONE 100MG TABLET PO SCH (18:47)
[2018-12-13 20:19] VITALS: BP 126/53
[2018-12-13] MEDS: GABAPENTIN 300MG CAPSULE PO SCH (20:51)
[2018-12-13] MEDS: ATORVASTATIN CALCIUM 40MG TABLET PO SCH (20:51)
[2018-12-14 00:08] VITALS: BP 106/47
[2018-12-14 04:00] VITALS: BP 130/52
[2018-12-14] MEDS: SULFAMETHOXAZOLE/TRIMETHOPRIM 800/160MG TABLET PO SCH (06:26)
[2018-12-14] MEDS: LEVOTHYROXINE SODIUM 112MCG TABLET PO SCH (06:27)
[2018-12-14] MEDS: SODIUM CHLORIDE 0.9% INJ 3ML FLUSH IVF SCH (06:28)
[2018-12-14 08:04] VITALS: BP 126/57
[2018-12-14] MEDS: ENOXAPARIN 30MG/0.3ML SYR SUBCUT SCH (08:48)
[2018-12-14] MEDS: LISINOPRIL 20MG TABLET PO SCH (08:49)
[2018-12-14] MEDS: DAPSONE 100MG TABLET PO SCH (08:50)
[2018-12-14] MEDS: ASPIRIN 81MG EC TABLET PO SCH (08:50)
[2018-12-14] MEDS: METOPROLOL TARTRATE 25MG TABLET PO SCH (08:50)
[2018-12-14] MEDS: BRIMONIDINE 0.2% OPHTH DROPS 5ML RIGHTEYE SCH (08:51)
[2018-12-14] MEDS: MOXIFLOXACIN 0.5% OP SCH ×2 (08:51→13:07)
[2018-12-14 12:23] VITALS: BP 112/45
[2018-12-14 14:20] VITALS: BP 126/57
[2018-12-14 15:48] VITALS: BP 129/69
== END 2018-12-14 16:11 | DRG 466 ==
LOC: ER 16:16 → 6EST 19:49 → ENRESERV 20:51 → 6WST 12-04 16:21
PROVIDERS: ADMIT Internal Medicine; ATTEND Internal Medicine
PROC: 0SWB0JZ Revision of Synthetic Substitute in Left Hip Joint, Open Approach (ICD-10-PCS; principal; 2018-12-05)
PROC: 0JNM0ZZ Release Left Upper Leg Subcutaneous Tissue and Fascia, Open Approach (ICD-10-PCS; 2018-12-05)
DX: T84.021A Dislocation of internal left hip prosthesis, initial encounter (principal); L89.153 Pressure ulcer of sacral region, stage 3; E87.0 Hyperosmolality and hypernatremia; N39.0 Urinary tract infection, site not specified; R65.10 Systemic inflammatory response syndrome (SIRS) of non-infectious origin without acute organ dysfunction; I25.5 Ischemic cardiomyopathy; I48.2 Chronic atrial fibrillation; E03.9 Hypothyroidism, unspecified; E78.5 Hyperlipidemia, unspecified; E87.6 Hypokalemia; I11.0 Hypertensive heart disease with heart failure; D64.9 Anemia, unspecified; I25.10 Atherosclerotic heart disease of native coronary artery without angina pectoris; M17.12 Unilateral primary osteoarthritis, left knee; L89.890 Pressure ulcer of other site, unstageable; H40.9 Unspecified glaucoma; I27.20 Pulmonary hypertension, unspecified; I50.9 Heart failure, unspecified; N28.9 Disorder of kidney and ureter, unspecified; B96.20 Unspecified Escherichia coli [E. coli] as the cause of diseases classified elsewhere; M85.80 Other specified disorders of bone density and structure, unspecified site; Y79.2 Prosthetic and other implants, materials and accessory orthopedic devices associated with adverse incidents; W06.XXXA Fall from bed, initial encounter; Y93.89 Activity, other specified; Y92.092 Bedroom in other non-institutional residence as the place of occurrence of the external cause; Y99.8 Other external cause status; Z98.61 Coronary angioplasty status; Z91.81 History of falling; I25.2 Old myocardial infarction; Z79.890 Hormone replacement therapy; Z79.899 Other long term (current) drug therapy; Z88.0 Allergy status to penicillin
CPT/HCPCS: 36415; 71045; 72170; 73552; 73590; 73630; 80048; 83735; 87077; 87186; 93005; 93970; 96365; 96372; 96375; 97110; 97166; 97530; 99285; C1893; J0330; J0690; J1170; J1650; J2405; J2704; J3010; J3370; J3475; J3480; J3490; J7040; J7050; J7070

== ENCOUNTER 2018-12-16 20:28 | Inpatient (IN) | payer MEDICARE, OTHER ==
[~2018-12-16] VITALS: Ht 177.8 cm; Wt 81.6 kg
[2018-12-17] MEDS ORDERED: SODIUM CHLORIDE 0.9% 1,000 ML IV ONE (02:34)
[2018-12-17 03:14] LABS: HEMATOCRIT. 27.6 % (36.0-48.0); HEMOGLOBIN. 8.9 g/dL (12.0-16.0); MEAN CORPUSCULAR HEMOGLOBIN 31.3 pg (28.0-32.0); MEAN CORPUSCULAR VOLUME 97.2 fL (81.0-99.0); MEAN PLATELET VOLUME 8.9 fl (7.4-10.4); PLATELET 226 x1000/uL (130-400); RED BLOOD CELL COUNT 2.84 mill/uL (4.2-5.4); RED CELL DISTRIBUTION WIDTH 15.9 % (11.6-14.6)
[2018-12-17 03:18] LABS: CHLORIDE 107 mEq/L (98-107)
[2018-12-17 04:36] LABS: PLATELET ESTIMATE NORMAL
[2018-12-17] MEDS ORDERED: ONDANSETRON HCL 4MG/2ML INJ IV PRN (06:45)
[2018-12-17] MEDS ORDERED: CLONIDINE 0.1MG TABLET PO PRN (06:45)
[2018-12-17] MEDS ORDERED: ACETAMINOPHEN 325MG TABLET PO PRN (06:45)
[2018-12-17] MEDS ORDERED: HYDROCODONE/ACETAMINOPHEN 5/325MG TABLET PO PRN (06:45)
[2018-12-17 09:30] VITALS: BP 127/64
[2018-12-17] MEDS ORDERED: HYDROMORPHONE HCL/PF 2MG/ML CPJ IV PRN (09:30)
[2018-12-17 10:17] VITALS: BP 127/64
[2018-12-17 12:00] VITALS: BP 125/60
[2018-12-17] MEDS: AMLODIPINE 10MG TABLET PO SCH (12:14)
[2018-12-17] MEDS: ENOXAPARIN 40MG/0.4ML SYR SUBCUT SCH (12:14)
[2018-12-17] MEDS: ASPIRIN 81MG TABLET PO SCH (15:48)
[2018-12-17 16:00] VITALS: BP 113/61
[2018-12-17 20:00] VITALS: BP 121/54
[2018-12-17] MEDS: METOPROLOL TARTRATE 25MG TABLET PO SCH (20:45)
[2018-12-17] MEDS: ATORVASTATIN CALCIUM 40MG TABLET PO SCH (20:45)
[2018-12-17] MEDS: BRIMONIDINE 0.2% OPHTH DROPS 5ML RIGHTEYE SCH (22:30)
[2018-12-18] VITALS: BP 114/50
[2018-12-18 01:22] LABS: CREATINE KINASE MB FRACTION 1.9 ng/mL (0.5-3.6)
[2018-12-18 04:00] VITALS: BP 129/54
[2018-12-18 06:57] LABS: BASOPHILS % 0.7 % (0.0-2.0); EOSINOPHILS % 1.8 % (0.0-5.0); HEMATOCRIT. 27.8 % (36.0-48.0); HEMOGLOBIN. 8.9 g/dL (12.0-16.0); LYMPHOCYTES % 7.3 % (20.0-50.0); MEAN CORPUSCULAR HEMOGLOBIN 31.4 pg (28.0-32.0); MEAN CORPUSCULAR VOLUME 98.1 fL (81.0-99.0); MONOCYTES % 8.1 % (2.0-8.0); NEUTROPHILS % 82.1 % (40.0-76.0); PLATELET 211 x1000/uL (130-400); RED BLOOD CELL COUNT 2.84 mill/uL (4.2-5.4); RED CELL DISTRIBUTION WIDTH 16.2 % (11.6-14.6)
[2018-12-18 06:59] LABS: CHLORIDE 107 mEq/L (98-107)
[2018-12-18 07:16] LABS: LDL CHOLESTEROL 64 mg/dL (5-100)
[2018-12-18 07:19] LABS: HDL CHOLESTEROL 39 mg/dL (40-59)
[2018-12-18 08:00] VITALS: BP 119/66
[2018-12-18] MEDS ORDERED: MEDICATION NOT ON FORMULARY EA (Moxifloxacin HCl (Moxifloxacin) 1 DROP) EACHEYE SCH (09:00)
[2018-12-18] MEDS: ASPIRIN 81MG TABLET PO SCH (09:52)
[2018-12-18] MEDS: AMLODIPINE 10MG TABLET PO SCH (09:52)
[2018-12-18] MEDS: METOPROLOL TARTRATE 25MG TABLET PO SCH ×2 (09:53→21:21)
[2018-12-18] MEDS: BRIMONIDINE 0.2% OPHTH DROPS 5ML RIGHTEYE SCH ×2 (09:53→21:21)
[2018-12-18] MEDS: ENOXAPARIN 40MG/0.4ML SYR SUBCUT SCH (09:54)
[2018-12-18 12:00] VITALS: BP 116/69
[2018-12-18] MEDS ORDERED: DAPSONE 25 MG PO SCH (12:00)
[2018-12-18] MEDS: LEVOTHYROXINE SODIUM 112MCG TABLET PO SCH (12:39)
[2018-12-18 16:00] VITALS: BP_SYST 106; BP_SYST 108; BP_DIAS 52
[2018-12-18] MEDS: DAPSONE 25 MG PO SCH (19:46)
[2018-12-18 20:00] VITALS: BP 114/62
[2018-12-18] MEDS: ATORVASTATIN CALCIUM 40MG TABLET PO SCH (21:19)
[2018-12-19] VITALS: BP 106/42
[2018-12-19 04:00] VITALS: BP 122/59
[2018-12-19] MEDS: LEVOTHYROXINE SODIUM 112MCG TABLET PO SCH (06:15)
[2018-12-19 08:00] VITALS: BP 127/52
[2018-12-19] MEDS: ASPIRIN 81MG TABLET PO SCH (08:59)
[2018-12-19] MEDS: METOPROLOL TARTRATE 25MG TABLET PO SCH ×2 (09:00→22:35)
[2018-12-19] MEDS: AMLODIPINE 10MG TABLET PO SCH (09:00)
[2018-12-19] MEDS: BRIMONIDINE 0.2% OPHTH DROPS 5ML RIGHTEYE SCH ×2 (09:01→22:36)
[2018-12-19] MEDS: ENOXAPARIN 40MG/0.4ML SYR SUBCUT SCH (09:01)
[2018-12-19] MEDS: DAPSONE 25 MG PO SCH ×2 (09:02→19:29)
[2018-12-19 09:37] LABS: BASOPHILS % 0.8 % (0.0-2.0); EOSINOPHILS % 1.5 % (0.0-5.0); HEMATOCRIT. 26.5 % (36.0-48.0); HEMOGLOBIN. 8.4 g/dL (12.0-16.0); LYMPHOCYTES % 7.7 % (20.0-50.0); MEAN CORPUSCULAR HEMOGLOBIN 30.9 pg (28.0-32.0); MEAN CORPUSCULAR VOLUME 97.7 fL (81.0-99.0); MEAN PLATELET VOLUME 9.9 fl (7.4-10.4); MONOCYTES % 8.2 % (2.0-8.0); NEUTROPHILS % 81.8 % (40.0-76.0); PLATELET 232 x1000/uL (130-400); RED BLOOD CELL COUNT 2.71 mill/uL (4.2-5.4); RED CELL DISTRIBUTION WIDTH 16.6 % (11.6-14.6)
[2018-12-19 10:47] LABS: CHLORIDE 105 mEq/L (98-107)
[2018-12-19 12:00] VITALS: BP 112/55
[2018-12-19 16:00] VITALS: BP 125/61
[2018-12-19 20:00] VITALS: BP 108/58
[2018-12-19] MEDS: ATORVASTATIN CALCIUM 40MG TABLET PO SCH (22:35)
[2018-12-20] VITALS: BP 111/61
[2018-12-20 04:00] VITALS: BP 119/51
[2018-12-20] MEDS: LEVOTHYROXINE SODIUM 112MCG TABLET PO SCH (06:54)
[2018-12-20 08:00] VITALS: BP 116/56
[2018-12-20] MEDS ORDERED: LEVOTHYROXINE SODIUM 125MCG TABLET PO SCH (09:00)
[2018-12-20] MEDS: BRIMONIDINE 0.2% OPHTH DROPS 5ML RIGHTEYE SCH ×2 (09:01→20:31)
[2018-12-20] MEDS: AMLODIPINE 10MG TABLET PO SCH (09:02)
[2018-12-20] MEDS: DAPSONE 25 MG PO SCH ×2 (09:02→17:37)
[2018-12-20] MEDS: ASPIRIN 81MG TABLET PO SCH (09:02)
[2018-12-20] MEDS: METOPROLOL TARTRATE 25MG TABLET PO SCH ×2 (09:03→20:23)
[2018-12-20] MEDS: ENOXAPARIN 40MG/0.4ML SYR SUBCUT SCH (09:06)
[2018-12-20 12:00] VITALS: BP 139/49
[2018-12-20 16:00] VITALS: BP 113/47
[2018-12-20 20:00] VITALS: BP 106/65
[2018-12-20] MEDS: ATORVASTATIN CALCIUM 40MG TABLET PO SCH (20:31)
[2018-12-20] MEDS: ASCORBIC ACID 250 MG TABLET PO SCH (20:31)
[2018-12-21 00:04] VITALS: BP 108/49
[2018-12-21 04:00] VITALS: BP 133/56
[2018-12-21] MEDS ORDERED: LEVOTHYROXINE SODIUM 125MCG TABLET PO SCH (07:10)
[2018-12-21 08:00] VITALS: BP 134/55
[2018-12-21] MEDS: ASPIRIN 81MG TABLET PO SCH (09:58)
[2018-12-21] MEDS: ENOXAPARIN 40MG/0.4ML SYR SUBCUT SCH (09:58)
[2018-12-21] MEDS: ZINC SULFATE 220 MG ( 50 ) CAPSULE PO SCH (09:59)
[2018-12-21] MEDS: MULTIVITAMINS,THER W-MINERALS TABLET PO SCH (10:00)
[2018-12-21] MEDS: DAPSONE 25 MG PO SCH ×2 (10:00→17:40)
[2018-12-21] MEDS: AMLODIPINE 10MG TABLET PO SCH (10:01)
[2018-12-21] MEDS: ASCORBIC ACID 250 MG TABLET PO SCH ×2 (10:01→21:46)
[2018-12-21] MEDS: METOPROLOL TARTRATE 25MG TABLET PO SCH ×2 (10:02→21:45)
[2018-12-21] MEDS: BRIMONIDINE 0.2% OPHTH DROPS 5ML RIGHTEYE SCH ×2 (10:02→21:46)
[2018-12-21 12:00] VITALS: BP 103/50
[2018-12-21 16:00] VITALS: BP 122/79
[2018-12-21 20:00] VITALS: BP 123/57
[2018-12-21] MEDS: ATORVASTATIN CALCIUM 40MG TABLET PO SCH (21:45)
[2018-12-22] VITALS: BP 104/50
[2018-12-22 04:00] VITALS: BP 126/59
[2018-12-22] MEDS ORDERED: LEVOTHYROXINE SODIUM 125MCG TABLET PO SCH ×2 (07:10)
[2018-12-22 08:30] VITALS: BP 124/59
[2018-12-22] MEDS: ASCORBIC ACID 250 MG TABLET PO SCH (09:00)
[2018-12-22] MEDS: ZINC SULFATE 220 MG ( 50 ) CAPSULE PO SCH (09:10)
[2018-12-22] MEDS: MULTIVITAMINS,THER W-MINERALS TABLET PO SCH (09:10)
[2018-12-22] MEDS: METOPROLOL TARTRATE 25MG TABLET PO SCH (09:11)
[2018-12-22] MEDS: DAPSONE 25 MG PO SCH (09:11)
[2018-12-22] MEDS: AMLODIPINE 10MG TABLET PO SCH (09:11)
[2018-12-22] MEDS: ASPIRIN 81MG TABLET PO SCH (09:11)
[2018-12-22] MEDS: BRIMONIDINE 0.2% OPHTH DROPS 5ML RIGHTEYE SCH (09:12)
[2018-12-22] MEDS: ENOXAPARIN 40MG/0.4ML SYR SUBCUT SCH (09:12)
[2018-12-22 12:00] VITALS: BP 119/72
[2018-12-22 13:10] VITALS: BP 124/59
== END 2018-12-22 15:50 | DRG 463 ==
LOC: ER 20:28 → 8WST 12-17 03:05 → SUPCPDRO 12-17 06:42 → ENRESERV 12-17 08:09
PROVIDERS: ADMIT Hospitalist; ATTEND Hospitalist
PROC: 0JBM0ZZ Excision of Left Upper Leg Subcutaneous Tissue and Fascia, Open Approach (ICD-10-PCS; principal; 2018-12-18)
DX: T84.021A Dislocation of internal left hip prosthesis, initial encounter (principal); L89.153 Pressure ulcer of sacral region, stage 3; L97.929 Non-pressure chronic ulcer of unspecified part of left lower leg with unspecified severity; E46 Unspecified protein-calorie malnutrition; I25.5 Ischemic cardiomyopathy; E03.9 Hypothyroidism, unspecified; I48.2 Chronic atrial fibrillation; I11.0 Hypertensive heart disease with heart failure; I50.9 Heart failure, unspecified; I25.10 Atherosclerotic heart disease of native coronary artery without angina pectoris; H40.9 Unspecified glaucoma; D64.9 Anemia, unspecified; E78.5 Hyperlipidemia, unspecified; I27.20 Pulmonary hypertension, unspecified; F03.90 Unspecified dementia, unspecified severity, without behavioral disturbance, psychotic disturbance, mood disturbance, and anxiety; G62.9 Polyneuropathy, unspecified; Y83.1 Surgical operation with implant of artificial internal device as the cause of abnormal reaction of the patient, or of later complication, without mention of misadventure at the time of the procedure; Y92.128 Other place in nursing home as the place of occurrence of the external cause; Z79.899 Other long term (current) drug therapy; I25.2 Old myocardial infarction; Z91.81 History of falling; Z98.61 Coronary angioplasty status; Z79.82 Long term (current) use of aspirin; Z88.0 Allergy status to penicillin; Z68.25 Body mass index [BMI] 25.0-25.9, adult
CPT/HCPCS: 36415; 71045; 73502; 80048; 80061; 82550; 82553; 83735; 83880; 84134; 84443; 84484; 93005; 93923; 93970; 96360; 96372; 97163; 97530; 99285; J1650; J7030

== ENCOUNTER 2019-04-28 03:32 | Inpatient (IN) | payer MEDICARE, OTHER, MEDICAID ==
[~2019-04-28] VITALS: Ht 177.8 cm; Wt 74.8 kg
[2019-04-28 04:15] LABS: HEMOGLOBIN 11.1 g/dL (12.0-16.0); MEAN CORPUSCULAR HEMOGLOBIN 29.5 pg (28.0-32.0); MEAN CORPUSCULAR VOLUME 90.5 fL (81.0-99.0); PLATELET 164 x1000/uL (130-400); RED BLOOD CELL COUNT 3.75 mill/uL (4.2-5.4); RED CELL DISTRIBUTION WIDTH 13.4 % (11.6-14.6)
[2019-04-28 04:21] LABS: CHLORIDE 109 mEq/L (98-107)
[2019-04-28] MEDS ORDERED: MORPHINE SULFATE 4 MG/ML CPJ (NOT FOR IM USE) IV ONE (05:00)
[2019-04-28 09:00] VITALS: BP 131/70
[2019-04-28] MEDS ORDERED: MORPHINE SULFATE 2 MG/ML CPJ (NOT FOR IM USE) IV PRN (09:00)
[2019-04-28] MEDS ORDERED: HYDROCODONE/ACETAMINOPHEN 5/325MG TABLET PO PRN (09:00)
[2019-04-28] MEDS ORDERED: ACETAMINOPHEN 325MG TABLET PO PRN (09:00)
[2019-04-28] MEDS ORDERED: ONDANSETRON HCL 4MG/2ML INJ IV PRN (09:00)
[2019-04-28] MEDS ORDERED: VIT500TA8 PO (09:22)
[2019-04-28] MEDS ORDERED: CARB15DR48 EACH EAR (09:22)
[2019-04-28] MEDS ORDERED: DOCU-150 MT (09:22)
[2019-04-28] MEDS ORDERED: BISA-81 PO (09:22)
[2019-04-28] MEDS ORDERED: AMLO10TA80 MT (09:22)
[2019-04-28] MEDS ORDERED: ASPI-1393 MT (09:22)
[2019-04-28 12:00] VITALS: BP 139/76
[2019-04-28 12:34] LABS: CLARITY URINE CLEAR (CLEAR); COLOR URINE YELLOW (YELLOW); KETONES URINE NEGATIVE (NEGATIVE); LEUKOCYTE ESTERASE URINE TRACE (NEGATIVE); NITRITE URINE NEGATIVE (NEGATIVE); OCCULT BLOOD URINE TRACE (NEGATIVE); PH URINE 6.5 (4.5-8.0); PROTEIN URINE NEGATIVE (NEGATIVE); SPECIFIC GRAVITY URINE 1.012 (1.005-1.030)
[2019-04-28 13:08] VITALS: BP 139/76
[2019-04-28] MEDS: LEVOTHYROXINE SODIUM 112MCG TABLET PO SCH (14:09)
[2019-04-28 16:10] VITALS: BP 135/70
[2019-04-28] MEDS ORDERED: MEDICATION NOT ON FORMULARY EA (Brimonidine Tartrate 1 DROP) RIGHTEYE SCH (19:45)
[2019-04-28] MEDS ORDERED: LORATADINE 10MG TABLET PO PRN (19:45)
[2019-04-28] MEDS ORDERED: MEDICATION NOT ON FORMULARY EA (Moxifloxacin HCl (Moxifloxacin) 1 DROP) EACHEYE SCH (19:45)
[2019-04-28 20:00] VITALS: BP 131/73
[2019-04-28] MEDS ORDERED: MEDICATION NOT ON FORMULARY EA (Gabapentin 300 MG) PO SCH (21:00)
[2019-04-28] MEDS: METOPROLOL TARTRATE 25MG TABLET PO SCH (21:00)
[2019-04-28] MEDS: ATORVASTATIN CALCIUM 40MG TABLET PO SCH (21:29)
[2019-04-28] MEDS: GABAPENTIN 300MG CAPSULE PO SCH (21:29)
[2019-04-28] MEDS: AMLODIPINE 10MG TABLET PO SCH (21:30)
[2019-04-29] VITALS: BP 130/65
[2019-04-29 04:00] VITALS: BP 156/53
[2019-04-29 06:31] LABS: BASOPHILS % 1.3 % (0.0-2.0); EOSINOPHILS % 4.1 % (0.0-5.0); HEMATOCRIT. 32.5 % (36.0-48.0); HEMOGLOBIN. 10.8 g/dL (12.0-16.0); LYMPHOCYTES % 15.1 % (20.0-50.0); MEAN CORPUSCULAR VOLUME 89.8 fL (81.0-99.0); MEAN PLATELET VOLUME 9.8 fl (7.4-10.4); MONOCYTES % 10.8 % (2.0-8.0); NEUTROPHILS % 68.7 % (40.0-76.0); PLATELET 167 x1000/uL (130-400); RED BLOOD CELL COUNT 3.61 mill/uL (4.2-5.4); RED CELL DISTRIBUTION WIDTH 13.2 % (11.6-14.6)
[2019-04-29 08:00] VITALS: BP 149/74
[2019-04-29] MEDS: AMLODIPINE 10MG TABLET PO SCH (08:40)
[2019-04-29] MEDS: METOPROLOL TARTRATE 25MG TABLET PO SCH ×2 (08:40→20:43)
[2019-04-29] MEDS: DOCUSATE SODIUM 100MG CAPSULE PO SCH ×2 (08:40→17:55)
[2019-04-29] MEDS: ASPIRIN 81MG TABLET PO SCH (08:40)
[2019-04-29] MEDS: LISINOPRIL 20MG TABLET PO SCH (08:41)
[2019-04-29] MEDS: LEVOTHYROXINE SODIUM 112MCG TABLET PO SCH (08:41)
[2019-04-29] MEDS: CARBAMIDE PEROXIDE 6.5% OTIC SOLN 15ML EACH EAR SCH ×2 (08:41→17:55)
[2019-04-29] MEDS: BRIMONIDINE 0.2% OPHTH DROPS 5ML RIGHTEYE SCH ×2 (08:42→17:56)
[2019-04-29] MEDS: CIPROFLOXACIN 0.3% OPHTH SOLN 2.5ML EACHEYE SCH ×3 (08:42→17:55)
[2019-04-29] MEDS ORDERED: MEDICATION NOT ON FORMULARY EA (Docusate Sodium 1 CAP) MT SCH (09:00)
[2019-04-29] MEDS ORDERED: MEDICATION NOT ON FORMULARY EA (Metoprolol Tartrate 25 MG) PO SCH (09:00)
[2019-04-29] MEDS ORDERED: DAPSONE MT SCH (09:00)
[2019-04-29] MEDS ORDERED: MEDICATION NOT ON FORMULARY EA (Lisinopril 20 MG) PO SCH (09:00)
[2019-04-29] MEDS ORDERED: LEVOTHYROXINE SODIUM 112MCG TABLET PO SCH (09:00)
[2019-04-29 12:00] VITALS: BP 138/79
[2019-04-29 16:00] VITALS: BP 134/79
[2019-04-29 20:00] VITALS: BP 113/69
[2019-04-29] MEDS: GABAPENTIN 300MG CAPSULE PO SCH (20:43)
[2019-04-29] MEDS: ATORVASTATIN CALCIUM 40MG TABLET PO SCH (20:43)
[2019-04-30] VITALS: BP 121/56
[2019-04-30 04:00] VITALS: BP 125/59
[2019-04-30] MEDS: LEVOTHYROXINE SODIUM 112MCG TABLET PO SCH (06:17)
[2019-04-30 08:00] VITALS: BP 125/56
[2019-04-30] MEDS: METOPROLOL TARTRATE 25MG TABLET PO SCH (09:00)
[2019-04-30] MEDS: LISINOPRIL 20MG TABLET PO SCH (09:17)
[2019-04-30] MEDS: AMLODIPINE 10MG TABLET PO SCH (09:17)
[2019-04-30] MEDS: DOCUSATE SODIUM 100MG CAPSULE PO SCH ×2 (09:17→17:35)
[2019-04-30] MEDS: CARBAMIDE PEROXIDE 6.5% OTIC SOLN 15ML EACH EAR SCH ×2 (09:19→17:36)
[2019-04-30] MEDS: CIPROFLOXACIN 0.3% OPHTH SOLN 2.5ML EACHEYE SCH ×3 (09:19→17:36)
[2019-04-30] MEDS: ASPIRIN 81MG TABLET PO SCH (09:19)
[2019-04-30] MEDS: BRIMONIDINE 0.2% OPHTH DROPS 5ML RIGHTEYE SCH ×2 (09:21→17:37)
[2019-04-30 12:00] VITALS: BP 107/51
[2019-04-30 16:00] VITALS: BP 115/55
[2019-04-30 20:59] VITALS: BP 152/69
[2019-05-01 09:06] LABS: IMMUNOGLOBULIN A 540 mg/dL (64-422); IMMUNOGLOBULIN G 835 mg/dL (700-1600); IMMUNOGLOBULIN M 50 mg/dL (26-217)
== END 2019-04-30 22:40 | DRG 560 ==
LOC: ER 03:32 → 6WST 05:02 → ENRESERV 06:58 → CANRESERV 06:58 → EDBEDREQSVC 07:43 → ENRESERV 07:51
PROVIDERS: ADMIT Internal Medicine; ATTEND Internal Medicine
DX: T84.021A Dislocation of internal left hip prosthesis, initial encounter (principal); E44.1 Mild protein-calorie malnutrition; I50.22 Chronic systolic (congestive) heart failure; I42.9 Cardiomyopathy, unspecified; Z96.642 Presence of left artificial hip joint; I48.91 Unspecified atrial fibrillation; E78.00 Pure hypercholesterolemia, unspecified; E78.5 Hyperlipidemia, unspecified; E03.9 Hypothyroidism, unspecified; D64.9 Anemia, unspecified; E87.8 Other disorders of electrolyte and fluid balance, not elsewhere classified; I25.10 Atherosclerotic heart disease of native coronary artery without angina pectoris; Y79.2 Prosthetic and other implants, materials and accessory orthopedic devices associated with adverse incidents; I27.20 Pulmonary hypertension, unspecified; I11.0 Hypertensive heart disease with heart failure; W18.39XA Other fall on same level, initial encounter; Z88.0 Allergy status to penicillin; Z79.899 Other long term (current) drug therapy; Z79.82 Long term (current) use of aspirin; Z68.23 Body mass index [BMI] 23.0-23.9, adult; Y93.89 Activity, other specified; Y92.89 Other specified places as the place of occurrence of the external cause; Y99.8 Other external cause status; Z91.81 History of falling
CPT/HCPCS: 36415; 72170; 80048; 82784; 85027; 86334; 93970; 97162; 99285; A6261